=== PATIENT | female | born 1950 | race Asian ===

== ENCOUNTER → 2016-10-17 | Day surgery (SDC) | payer OTHER ==
[2016-09-28 16:08] LABS: BASO % 1.1 %; BASO ABS # 0.06 K/uL (0-0.2); COMPLETE YES; EOS % 2.7 %; HEMATOCRIT 38.7 % (37-47); IG% 0.4 %; LYMPH % 39.8 %; LYMPH ABS # 2.18 K/uL (1.2-3.4); MEAN CELL VOLUME 89.2 fL (80-100); MEAN CORPUSCULAR HGB CONC 33.6 g/dl (32-36); MEAN PLATELET VOLUME 9.2 fL (7.4-10.4); MONO % 8.6 %; NEUT % 47.4 %; PLATELET COUNT 246 K/uL (130-400); RED BLOOD COUNT 4.34 M/uL (4.2-5.4); WHITE BLOOD COUNT 5.48 K/uL (4.8-10.8)
[2016-10-04 10:52] VITALS: Ht 154.9 cm; Wt 59.1 kg
[2016-10-10 11:38] LABS: BUN/CREATININE RATIO 25.3 (10-20); CALCIUM 9.6 mg/dl (8.5-10.1); CREATININE 0.68 mg/dl (0.60-1.20); POTASSIUM 3.7 mmol/L (3.5-5.1)
[~2016-10-17] VITALS: Ht 154.9 cm; Wt 59.1 kg
[~2016-10-17] MED LIST: AMLO2.5T PO; ATROPINE SULFATE 0.1 MG/ML 5ML SYR IV PRN; DEXAMETHASONE SOD INJ 4 MG/ML VIAL ONE; EpHEDrine SULFATE INJ 50 MG/ML AMP IV PRN; FENTANYL CITRATE INJ 50 MCG/1 ML 2 ML VIAL IV PRN; FENTANYL CITRATE INJ 50 MCG/1 ML 2 ML VIAL ONE; HYDR25TA4 PO; IBUPROFEN 600 MG TAB PO PRN; KETOROLAC TROMETHAMINE 30 MG/ML VIAL IV. PRN; KETOROLAC TROMETHAMINE 30 MG/ML VIAL ONE; LACTATED RINGER'S 1000ML 1,000 ML IV SCH; LIDOCAINE HCL 2% 2 ML VIAL (20MG/ML) ONE; METOCLOPRAMIDE HCL INJ 5 MG/ML 2 ML VIAL IV PRN; MIDAZOLAM HCL 1 MG/ML 2ML VIAL ONE; ONDANSETRON INJ 2 MG/ML 2 ML VIAL IV PRN; ONDANSETRON INJ 2 MG/ML 2 ML VIAL ONE; OXYCODONE/ACETAMINOPHEN 5-325 TAB PO PRN; PROPOFOL IV EMULSION 10 MG/ML 20 ML VIAL IV ONE; SIMV10TA2 PO; SODIUM CHLORIDE 0.9% 1000ML 1,000 ML IV SCH
--- NOTE | 2016-10-17 06:52 | History & Physical Bridge - [place] ---
H&P Re-Evaluation Bridge Note: I have examined the patient, reviewed the History & Physical and in the interval since the performance of the History & Physical I have noted the following changes of clinical significance: No changes noted
--- NOTE | 2016-10-17 06:55 | Discharge Instructions-SurgCtr ---
Discharge Instructions Visit Reason for Visit: Endometrial Thickening Discharge Discharge Diagnosis / Problem: Endometrial Discharge Goals Goal(s): Specific goals Activity Recommendations Activity Limitations: per Instructions/Follow-up section Anesthesia . Post Anesthesia Instructions: If you have had General Anesthesia or IV Sedation: * Do not drive today. * Resume driving when surgeon permits. * Do not make important decisions or sign legal documents today. * Call surgeon for: 1. Temperature elevations greater than 101 degrees F. 2. Uncontrollable pain. 3. Excessive bleeding. 4. Persistent nausea and vomiting. 5. Medication intolerance (nausea, vomiting or rash). * For nausea and vomiting use only clear liquids such as: tea, soda, bouillon until nausea subsides, then gradually increase diet as tolerated. * If you have any concerns or questions, call your surgeon's office. If physician is unavailable and it is an emergency, call 911 or go to the nearest emergency room. . Instructions / Follow-Up Instructions / Follow-Up ACTIVITY RECOMMENDATIONS: * Avoid tampons, douching, hot tubs, pools, and intercourse until bleeding has stopped. * May shower as usual. * No strenuous activity for 24-48 hours. After 24-48 hours, you may do anything you feel like doing (driving and sports are okay). SPECIAL CARE INSTRUCTIONS: Special Diet: * Mild nausea may occur in the immediate post-operative period. * Take clear liquids such as tea, cola or bouillon until all nausea has subsided; you may then resume your normal diet. Special Care: * Light bleeding and vaginal spotting can last from a few days to 3-4 weeks. Call your doctor if bleeding becomes heavier than the heaviest part of your period. * Check your temperature twice a day for one week. If it goes above 100.4 degrees Fahrenheit (38.0 Celsius), notify your doctor. * Medication is motrin / ibuprofen, you may use 600mg every 6 hours as needed for discomfort. * Call your doctor's office for an appointment for 6 weeks after your surgery. FOLLOW-UP VISIT: Call your doctor's office for an appointment for 6 weeks after your surgery. Diet Recommendations Home Diet: resume previous diet Pending Studies Studies pending at discharge: no Medical Emergencies . Who to Call and When: Medical Emergencies: If at any time you feel your situation is an emergency, please call 911 immediately. . Non-Emergent Contact Non-Emergency issues call your: Primary Care Provider . . "Provider Documentation" section prepared by Marisel Evans.
--- NOTE | 2016-10-17 07:31 | [facility] Post Operative Brief Note ---
Immediate Operative Summary Operative Date Oct 17, 2016. Pre-Operative Diagnosis Endometrial Thickening Post-Operative Diagnosis Same Procedure(s) Performed Dilatation And Curettage, Hysteroscopy, Possible Polypectomy Surgeon Dr. Evans Equal Opportunity Assistant Surgeon(s) None Estimated Blood Loss 10 Findings large singular mass filling endometrial cavity, with apparent calcifications and visible blood vessels within a translucent stroma. Cavity otherwise smooth , ostia seen bilaterally. Sounded to 8cm. Specimens A. Endometrial Curettings Complication(s) None Disposition Recovery Room / PACU
--- NOTE | 2016-10-17 07:44 | OPERATIVE REPORT ---
DATE OF OPERATION: 10/17/2016 PREOPERATIVE DIAGNOSIS: Endometrial thickening. POSTOPERATIVE DIAGNOSIS: Same. PROCEDURE: D\T\C, hysteroscopy and polypectomy. SURGEON: Dr. Marisel Evans. C SOFTWARE DEVELOPER: None. ESTIMATED BLOOD LOSS: 10 mL. FINDINGS: A large singular mass filling the endometrial cavity with apparent calcifications and visible blood vessels within the translucent stroma. The cavity was otherwise smooth. Ostia were seen bilaterally. Sounded to 8 cm depth. SPECIMENS: Endometrial curettings and polyp. COMPLICATIONS: None. DISPOSITION: Stable to the recovery room. DESCRIPTION OF PROCEDURE: Amy is a 66-year-old female, postmenopausal with a thickened endometrium found incidentally on imaging. She was brought to the operating room, placed on the table in the dorsal lithotomy position, prepped and draped in standard sterile fashion and a hard time-out was taken prior to proceeding. The bladder was emptied of urine via straight catheterization. Bimanual examination was performed. Leigh and weighted specula were introduced to the vagina and the cervix was identified and grasped with a single-tooth tenaculum on its anterior lip. Uterus sounded to 8 cm and the cervix was then serially dilated to 19-[place]ian. The hysteroscope was introduced and a large singular mass was immediately evident filling the majority of the endometrial cavity. The scope was withdrawn. Polyp forceps were used to grasp and retrieve this mass in several pieces. Following the retrieval, the hysteroscope was reintroduced and the cavity was seen to be smooth and clear and ostia were visible bilaterally. The scope was again withdrawn and a brief sharp curettage was carried out and endometrial curettings were retrieved for pathology. The scope was then reintroduced one final time and the cavity was seen to have been smoothly curetted on all sides. All instruments were then withdrawn and the patient was transferred to recovery in stable condition. I attest to the content of the Intraoperative Record and any orders documented therein. Any exceptio ns are noted below.
[2016-10-17 08:07] VITALS: TEMP 36.6
--- NOTE | 2016-10-17 08:27 | Anesthesia Progress Nt - [facility] ---
Anesthesia Post Op Note Date & Time Oct 17, 2016 at 08:27 Vital Signs Pain Intensity: 0 Vital Signs Past 12 Hours Date Time Temp Pulse Resp B/P Pulse Ox O2 Delivery O2 Flow Rate FiO2 10/17/16 08:07 36.6 55 16 142/66 100 Room Air 10/17/16 08:03 143/75 10/17/16 08:02 36.4 60 22 135/64 98 Room Air 10/17/16 08:01 56 15 10/17/16 08:01 56 15 99 10/17/16 07:58 135/64 10/17/16 07:56 57 18 10/17/16 07:56 57 18 98 10/17/16 07:55 65 20 98 10/17/16 07:55 64 20 10/17/16 07:53 129/72 10/17/16 07:50 57 13 100 10/17/16 07:50 56 13 10/17/16 07:49 59 14 10/17/16 07:49 59 14 100 10/17/16 07:48 122/68 10/17/16 07:44 63 13 100 10/17/16 07:44 63 13 10/17/16 07:43 65 15 10/17/16 07:43 64 15 125/72 100 10/17/16 07:38 63 12 126/69 99 10/17/16 07:38 63 12 10/17/16 07:33 119/66 10/17/16 07:33 36.5 67 16 119/66 98 Mask 8 10/17/16 06:26 36.4 64 16 155/82 96 Room Air Notes Mental Status: alert / awake / arousable, participated in evaluation Pt Amnestic to Procedure: Yes Nausea / Vomiting: adequately controlled Pain: adequately controlled Airway Patency, RR, SpO2: stable & adequate BP & HR: stable & adequate Hydration State: stable & adequate Anesthetic Complications: no major complications apparent
[2016-10-17 08:40] VITALS: BP 128/71; PULSE 56; O2SAT 100
== END | disposition home or self-care (01) ==
LOC: X.SURG 06:07
PROVIDERS: ATTEND Obstetrics & Gynecology
DX: N85.8 Other specified noninflammatory disorders of uterus (principal); N84.0 Polyp of corpus uteri; R31.9 Hematuria, unspecified; Z86.39 Personal history of other endocrine, nutritional and metabolic disease; Z86.79 Personal history of other diseases of the circulatory system

== ENCOUNTER → 2017-05-12 | Outpatient (CLI) | payer OTHER ==
[~2017-05-12] MED LIST changes: -ATROPINE SULFATE 0.1 MG/ML 5ML SYR IV PRN; -DEXAMETHASONE SOD INJ 4 MG/ML VIAL ONE; -EpHEDrine SULFATE INJ 50 MG/ML AMP IV PRN; -FENTANYL CITRATE INJ 50 MCG/1 ML 2 ML VIAL IV PRN; -FENTANYL CITRATE INJ 50 MCG/1 ML 2 ML VIAL ONE; -IBUPROFEN 600 MG TAB PO PRN; -KETOROLAC TROMETHAMINE 30 MG/ML VIAL IV. PRN; -KETOROLAC TROMETHAMINE 30 MG/ML VIAL ONE; -LACTATED RINGER'S 1000ML 1,000 ML IV SCH; -LIDOCAINE HCL 2% 2 ML VIAL (20MG/ML) ONE; -METOCLOPRAMIDE HCL INJ 5 MG/ML 2 ML VIAL IV PRN; -MIDAZOLAM HCL 1 MG/ML 2ML VIAL ONE; -ONDANSETRON INJ 2 MG/ML 2 ML VIAL IV PRN; -ONDANSETRON INJ 2 MG/ML 2 ML VIAL ONE; -OXYCODONE/ACETAMINOPHEN 5-325 TAB PO PRN; -PROPOFOL IV EMULSION 10 MG/ML 20 ML VIAL IV ONE; -SODIUM CHLORIDE 0.9% 1000ML 1,000 ML IV SCH
--- NOTE | 2017-05-15 15:33 | MAMMOGRAPHY REPORT ---
BILATERAL DIGITAL SCREENING MAMMOGRAM WITH CAD: 05/12/2017 CLINICAL HISTORY: Routine screening. TECHNIQUE: Bilateral CC, MLO and repeat right cc views were obtained. Current study was also evaluat ed with a Computer Aided Detection (CAD) system. COMPARISON: No prior exams were available for comparison. BREAST COMPOSITION: There are scattered areas of fibroglandular density in both breasts. FINDINGS: There are a few benign-appearing coarse and punctate microcalcifications in the left breast . No suspicious mass, architectural distortion or cluster of suspicious microcalcifications is seen. IMPRESSION: ACR BI-RADS CATEGORY 1: NEGATIVE There is no mammographic evidence of malignancy. Prior outside mammograms are currently being reques bryon and if obtained they will be reviewed, compared to the current exam to assess for any more subtle changes, and an addendum will be made to this report. Otherwise, a 1 year screening mammogram is re commended. The patient will receive written notification of the results. Approximately 10% of breast cancers are not detected with mammography. A negative mammographic report should not delay biopsy if a clinically suggestive mass is present. Victoria Birch M.D. ay/:05/15/2017 14:46:57 Radiographer: Delores ONEIL(R)(M), [facility] letter sent: Normal 1/2 BI-RADS Code: ACR BI-RADS Category 1: Negative
== END | disposition home or self-care (01) ==
LOC: C.MAMM 10:10
PROVIDERS: ATTEND Obstetrics & Gynecology
DX: Z12.31 Encounter for screening mammogram for malignant neoplasm of breast (principal)

== ENCOUNTER → 2017-09-21 | Outpatient (CLI) | payer OTHER ==
--- NOTE | 2017-09-21 14:11 | DIAGNOSTIC IMAGING REPORT ---
LUMBAR SPINE MIN 4 VIEWS HISTORY: Pain RIGHT LUMBAR PAIN COMPARISON: None. FINDINGS: There is no fracture. Mild scoliosis. No evidence for compression deformity. Moderate degenerative disc change. IMPRESSION: Scoliosis. Moderate degenerative disc change. No acute process. The above report was generated using voice recognition software. It may contain grammatical, syntax or spelling errors. Electronically signed by: Marin Hopper M.D. 09/21/2017 2:10 PM Dictated Date/Time: 09/21/2017 2:07 PM
== END | disposition home or self-care (01) ==
LOC: C.RDSM 13:41
PROVIDERS: ATTEND Internal Medicine
DX: M41.26 Other idiopathic scoliosis, lumbar region (principal); M51.36 Other intervertebral disc degeneration, lumbar region

== ENCOUNTER → 2017-09-26 | Outpatient (CLI) | payer OTHER | END | disposition home or self-care (01) | LOC: C.MAMM 08:20 | PROVIDERS: ATTEND Family Medicine | DX: M85.88 Other specified disorders of bone density and structure, other site (principal); M85.852 Other specified disorders of bone density and structure, left thigh; M85.851 Other specified disorders of bone density and structure, right thigh ==

== ENCOUNTER → 2017-10-04 | Outpatient (CLI) | payer OTHER ==
--- NOTE | 2017-10-04 10:06 | DIAGNOSTIC IMAGING REPORT ---
THYROID ULTRASONOGRAPHY CLINICAL HISTORY: HYPERPARATHYROIDISM COMPARISON STUDY: No previous studies for comparison. FINDINGS: The right lobe of thyroid measures 4. 901.4 x 1.6 cm. The left lobe measured 4.5 x 1.0 x 1.5 cm. Both lobes of thyroid were heterogeneous in echotexture. There are multiple bilateral subcentimeter thyroid nodules. On the right there is a mid pole spongiform nodule measuring 7 x 4 x 5 mm. There is also a lower pole partially cystic nodule measuring 5 x 3 x 4 mm. On the left there is a hypoechoic slightly spongiform mid to upper pole 6 x 5 x 6 mm nodule. There is a spongiform 7 x 5 x 4 mm isthmus nodule. No parathyroid masses are visualized ultrasonographically. IMPRESSION: 1. Multinodular thyroid gland 2. No parathyroid masses were visualized ultrasonographically. Electronically signed by: Umer Briseno M.D. 10/04/2017 10:05 AM Dictated Date/Time: 10/04/2017 10:02 AM
== END | disposition home or self-care (01) ==
LOC: C.ULTR 09:27
PROVIDERS: ATTEND Family Medicine
DX: E21.3 Hyperparathyroidism, unspecified (principal); E04.2 Nontoxic multinodular goiter

== ENCOUNTER → 2018-05-10 | Outpatient (CLI) | payer OTHER ==
--- NOTE | 2018-05-10 10:36 | DIAGNOSTIC IMAGING REPORT ---
R HAND MIN 3 VIEWS ROUTINE, L HAND MIN 3 VIEWS ROUTINE HISTORY: 67 years-old Female M25.511,M25.512, M67.911, M79.641,M79.642, M81.0 chronic bilateral hand pain with history of osteoporosis COMPARISON: None available TECHNIQUE: 3 views of the bilateral hands FINDINGS: RIGHT: Bones are mildly demineralized. Moderate first carpometacarpal and first interphalangeal with mild multidigit interphalangeal osteoarthritis. No acute fracture, dislocation or erosive changes. Soft tissues are unremarkable. LEFT: Mild radiocarpal and multidigit interphalangeal with moderate first carpometacarpal osteoarthritis. No acute fracture, dislocation or erosive changes. Bones are mildly demineralized. Soft tissues are unremarkable without opaque foreign body. IMPRESSION: 1. Mild bone demineralization without acute fracture or dislocation. 2. Degenerative changes as above with moderate osteoarthritis of the bilateral first carpometacarpal joints.. The above report was generated using voice recognition software. It may contain grammatical, syntax or spelling errors. Electronically signed by: Junaid Brown M.D. 05/10/2018 10:34 AM Dictated Date/Time: 05/10/2018 10:30 AM
--- NOTE | 2018-05-10 10:53 | DIAGNOSTIC IMAGING REPORT ---
R SHOULDER MIN 2 VIEWS ROUTINE CLINICAL HISTORY: Bilateral shoulder pain. COMPARISON: None FINDINGS: Alignment of the right shoulder is anatomic. There is no fracture or suspicious lesion. There is mild osteoarthritis of the right acromioclavicular joint. No erosions are identified. Slight irregularity of the greater tuberosity is insertional. IMPRESSION: 1. No acute fracture. 2. Mild osteoarthritis of the right acromioclavicular joint. Electronically signed by: Ministerio Tong M.D. 05/10/2018 10:52 AM Dictated Date/Time: 05/10/2018 10:51 AM
== END | disposition home or self-care (01) ==
LOC: C.RAD1850 09:49
PROVIDERS: ATTEND Internal Medicine Rheumatology
DX: M25.511 Pain in right shoulder (principal); M25.512 Pain in left shoulder; M67.911 Unspecified disorder of synovium and tendon, right shoulder; M79.641 Pain in right hand; M79.642 Pain in left hand; M81.0 Age-related osteoporosis without current pathological fracture; M18.0 Bilateral primary osteoarthritis of first carpometacarpal joints

== ENCOUNTER → 2018-05-14 | Outpatient (CLI) | payer OTHER ==
--- NOTE | 2018-05-14 13:55 | MAMMOGRAPHY REPORT ---
BILATERAL DIGITAL SCREENING MAMMOGRAM TOMOSYNTHESIS WITH CAD: 05/14/2018 CLINICAL HISTORY: Routine screening. Patient has no complaints. TECHNIQUE: Breast tomosynthesis in addition to standard 2D mammography was performed. Current study w as also evaluated with a Computer Aided Detection (CAD) system. COMPARISON: Comparison is made to exam dated: 05/12/2017 mammogram - [facility]. BREAST COMPOSITION: There are scattered areas of fibroglandular density in both breasts. FINDINGS: No suspicious masses, calcifications, or areas of architectural distortion are noted in either breast . There has been no significant interval change compared to prior exams. Benign-appearing left breas t calcifications are not significantly changed. IMPRESSION: ACR BI-RADS CATEGORY 2: BENIGN There is no mammographic evidence of malignancy. A 1 year screening mammogram is recommended.( [id number]) The patient will receive written notification of the results. Some breast cancers are not detected with mammography. A negative mammographic report should not marlen y biopsy if a clinically suggestive mass is present. Irina Looney M.D. ah/:05/14/2018 12:23:06 It Security Consultant: RT Ruben(Tsering)(M), [facility] letter sent: Normal 1/2 BI-RADS Code: ACR BI-RADS Category 2: Benign
== END | disposition home or self-care (01) ==
LOC: C.MAMM 11:56
PROVIDERS: ATTEND Obstetrics & Gynecology
DX: Z12.31 Encounter for screening mammogram for malignant neoplasm of breast (principal)

== ENCOUNTER 2023-11-24 06:25 | Inpatient (IN) ==
[2023-11-24] MEDS: SODIUM CHLORIDE 0.9% 1,000 ML IV ONE ×2 (06:54→07:54)
--- NOTE | 2023-11-24 06:57 | Emergency Department Note ---
Impression & Plan Sepsis, Acute non-ST elevation myocardial infarction (NSTEMI), Acute UTI, Hyponatremia ED Provider Note NAME: LORRAINE MEREDITH AGE: 73 SEX: F : 1950 ARRIVES VIA: Walk-In INFORMANT: Patient, ED PROVIDER(S): ED TEMP CHIEF COMPLAINT: Nausea vomiting diarrhea MEDICAL DECISION MAKING: Patient presents due to concern for nausea vomiting and diarrhea that was thought secondary to food intake. IV was established and blood work was obtained. Patient was ordered IV fluids and Zofran. The patient does feel improved. Blood work shows a white count of 18 with a normal H&H. Platelet count is unremarkable. Lactate initially 2.9. Patient was ordered additional IV fluids. Patient noted to be hyponatremic. Patient was ordered urine and serum osmolality and urine electrolyte Patient did have CT of the abdomen pelvis performed. The patient was noted to have a significant elevation in troponin at 6900. EKG was repeated does show T wave inversions. I did perform bedside [id number] ultrasound did not show any significant pericardial effusion. Squeeze appeared to be concentric but unsure whether not depressed. Stat echo was ordered. I did speak with on-call assayer Dr. Valles. He agrees with stat echocardiogram heparin bolus and drip. Patient CT did show concern for ascending UTI. Patient was started on antibiotics. The patient has had pansensitive E. coli in the past. I did speak with the inpatient medicine service Dr. Yvonne garza and patient was admitted by Dr. Maher. Dr. Valles did state that the preliminary read of the echocardiogram did show concern for apical infarct Takotsubo and depressed EF. Critical Care: I have personally spent 75 minutes of critical care time in direct management of this patient. This includes bedside care, interpretation of diagnostic studies, and testing, discussion with consultants, patient, and family members, and other require inpatient management activities. This 75 minutes is in excess of all separately billable procedures. Discussion w/ other healthcare providers: Dr. Valles cardiology Dr. Maya and Dr. Maher inpatient medicine service Prior /Outside records reviewed: Patient did have pansensitive E. coli from June 05, 2023 Differential diagnosis: Gastroenteritis, food borne illness, infection, appendicitis, diverticulitis, inflammatory bowel disease, obstruction among others were considered. Diagnostics, as interpreted by me: ECG: Normal sinus rhythm, rate of 98, normal MN and QRS, right axis deviation, T wave inversions anteriorly and laterally. T wave versions are new for comparison EKG from October 21, 2020 Cardiac monitoring: An order was placed for continuous cardiac monitoring. The monitor shows a rate of 95 with sinus rhythm. Patient was placed on pulse oximetry Medical decision rules: None Imaging studies: I informally interpreted the patient's chest x-ray does not show obvious pneumonia or pneumothorax with formal report to follow. HPI: Patient presents due to concern for nausea vomiting and diarrhea since Monday. The patient is concerned that she might have food poisoning or Salmonella as the patient had had some chicken while eating out there but he also had burgers and nobody else had any symptoms. The patient denies any chest pains or shortness of breath. The patient denies any known sick contacts or recent travel no untreated stream or well water or recent antibiotic use. Patient did try to take some Tylenol for symptoms of abdominal cramping which improved her symptoms. Patient has complained of some chills and feeling cold but no fever. Patient denies any blood in the urine or stool and no blood in the vomit. The patient states that she typically has about 2 episodes per day. The patient states that her diarrhea is watery in nature. Patient denies alcohol tobacco or drug use PAST MEDICAL HISTORY: See Below PAST SURGICAL HISTORY: See Below SOCIAL HISTORY: See Below HOME MEDICATIONS: See Below ALLERGIES: See Below VITALS: See Below PHYSICAL EXAMINATION: GENERAL: NAD, non-toxic. EYE EXAM: Normal conjunctiva. PERRL, no anisocoria and EOM's grossly intact w/o pain. OROPHARYNX: Dry mucus membranes, grossly normal dentition. NECK: Trachea midline, no stridor. LUNGS: Clear to auscultation. Normal chest wall mechanics. HEART: NSR, no MRG. ABDOMEN: Abdomen soft, non-tender, no masses, no rebound or guarding. BACK: No CVA TTP. SKIN: No rashes and no bruising. UPPER EXTREMITIES: Upper extremities are grossly normal. LOWER EXTREMITIES: Grossly normal, no edema. NEURO EXAM: A&O x3, cranial nerves II-XII grossly intact, normal speech, moves all 4 extremities. Past Med/Surg History Medical History Age related osteoporosis Hyperlipidemia HTN (hypertension) Surgical History Hx of cataract extraction rt. History of endoscopy History of colonoscopy History of hysteroscopy endometrial polyp 2017 History of cholecystectomy History of thymoma benign Family History Sister Family history of diabetes mellitus Denies family history of Ovarian cancer Breast cancer Colorectal cancer Social History Smoking Status: Never smoker Second Hand Exposure: No; Do You Dip or Chew Tobacco: No; Hx Alcohol Use: No Hx Substance Use: No Preferred Language: Turkish Communication Ability: Effective School Social Worker Required: No Beliefs That Will Affect Care: None marital status: Current Living Situation: Spouse Current Living Situation Comment: moved from [place] to [place] to be closer to grandchildren current occupational status: retired 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 How many Children do You have: 2 Other Information That Helps Us Care for You: No Feels Safe at Home: Yes Safety Concerns: Feels Safe At This Time Assistive Devices: Denture - Upper and Denture - Lower Allergies Allergies Allergy/AdvReac Type Severity Reaction Status Date / Time lisinopril AdvReac Severe cough Verified 07/04/23 13:30 amlodipine AdvReac Unknown ankle Verified 07/04/23 13:30 swelling metoprolol AdvReac Unknown bradycardia, Verified 07/04/23 13:30 chest pain [id number] Reductase AdvReac Unknown muscle & Verified 07/04/23 13:30 Inhibitor joint pain [Kzsvocv-Xbh-Jpe Reductase Inhibitor] Home Meds Home Medications Medication Instructions Recorded Confirmed fenofibrate nanocrystallized 48 mg 48 mg PO QAM 08/21/20 11/24/23 tablet omega 4-ufx-ehw-fish oil 1,200 mg 0 cap PO QAM 10/28/20 11/24/23 (144 mg-216 mg) capsule (Fish Oil) spironolactone 50 mg tablet 50 mg PO BID 10/28/20 11/24/23 cholecalciferol (vitamin D3) 25 0 mcg PO QPM 05/05/23 11/24/23 mcg (1,000 unit) capsule hydrochlorothiazide 12.5 mg tablet 12.5 mg PO QAM 05/05/23 11/24/23 betamethasone, augmented 0.05 % 1 applic topical BID 11/24/23 11/24/23 topical cream meclizine 12.5 mg tablet 0 mg PO TID PRN dizziness 11/24/23 11/24/23 Previous Rx's Medication Instructions Recorded diltiazem HCl 120 mg 120 mg PO QAM #30 caps 10/28/20 capsule,extended release 24 hr (Cardizem CD) denosumab 60 mg/mL subcutaneous 60 mg subcut .[id number] #1 mL 03/24/23 syringe (Prolia) Results & Data (ED) Vital Signs Vital Signs - 24 hr 11/24/23 06:30 11/24/23 06:52 11/24/23 07:01 Temperature 36.2 C L Temperature Source Temporal Artery Scan Pulse Rate 103 H 96 H Pulse Rate [Apical] Respiratory Rate 16 Respiratory Effort / Characteristics Non-Labored Spontaneous Respiratory Depth Normal Blood Pressure 81/53 L Blood Pressure [Right Arm] Blood Pressure Mean 62 Blood Pressure Mean [Right Arm] Pulse Oximetry 98 96 Oxygen Delivery Method Room Air Room Air Sepsis Recent Fever Within 48 Hours No Sepsis New/Unexplained Change in Mental Status No Sepsis Action Taken by Nursing No Action Required 11/24/23 09:18 11/24/23 09:38 Temperature Temperature Source Pulse Rate Pulse Rate [Apical] 96 H 88 Respiratory Rate 24 22 Respiratory Effort / Characteristics Respiratory Depth Blood Pressure Blood Pressure [Right Arm] 94/49 L 97/58 L Blood Pressure Mean Blood Pressure Mean [Right Arm] 64 71 Pulse Oximetry 95 97 Oxygen Delivery Method Room Air Room Air Sepsis Recent Fever Within 48 Hours Sepsis New/Unexplained Change in Mental Status Sepsis Action Taken by Correction Medications Current Medication List: was personally reviewed by me Laboratory Data Attestation: I reviewed the patient's lab results. 11/24/23 06:51 11/24/23 06:51 Lab Results 11/24/23 11/24/23 11/24/23 Range/Units 06:51 06:56 07:49 WBC 18.27 H (4.8-10.8) K/ul RBC 4.39 (4.20-5.40) M/uL Hgb 13.1 (12.0-16.0) g/dl Hct 38.1 (37.0-47.0) % MCV 86.8 (80.0-100.0) fL MCH 29.8 (25.0-34.0) pg MCHC 34.4 (32.0-36.0) g/dL RDW Std Deviation 36.5 (36.4-46.3) fL RDW Coeff of Gibran 11.3 L (11.5-14.5) % Plt Count 298 (130-400) K/uL MPV 9.4 (9.4-12.4) fL Immature Gran % (Auto) 1.2 % Neut % (Auto) 87.1 % Lymph % (Auto) 5.3 % Esmeralda % (Auto) 6.1 % Eos % (Auto) 0.1 % Baso % (Auto) 0.2 % Neut # (Auto) 15.92 H (1.40-6.50) K/uL Lymph # (Auto) 0.97 L (1.20-3.40) K/uL Esmeralda # (Auto) 1.11 H (0.11-0.59) K/uL Eos # (Auto) 0.01 (0.00-0.50) K/uL Baso # (Auto) 0.04 (0.00-0.20) K/uL Immature Gran # (Auto) 0.22 H (0.01-0.20) K/uL Sodium 127 L (136-145) mmol/L Potassium 4.0 (3.5-5.1) mmol/L Chloride 93 L (98-107) mmol/L Carbon Dioxide 22 (21-32) mmol/L Anion Gap 12 H (3-11) BUN 34 H (6-23) mg/dl Creatinine 1.73 H (0.6-1.2) mg/dl Est Cr Clr Drug Dosing Not Reportable Est GFR ( Amer) 32.9 ml/min Est GFR (Non-Af Amer) 28.4 ml/min BUN/Creatinine Ratio 19.7 (10-20) Glucose 160 H (70-99(Fasting)) mg/dl Osmolality 283 (280-300) mOsm/kg Lactate 2.9 H* (0.4-2.0) mmol/L Calcium 9.5 (8.6-10.3) mg/dl Magnesium 1.8 (1.7-2.4) mg/dl Total Bilirubin 1.1 H (0.2-1.0) mg/dl AST 97 H (13-39) U/L ALT 85 H (7-52) U/L Alkaline Phosphatase 64 (34-104) U/L Troponin I High Sens 6996.8 H* 7768.4 H* (0-14) pg/ml B-Natriuretic Peptide 1866 H (0-100) pg/ml Total Protein 7.8 (6.0-8.3) gm/dl Albumin 4.3 (3.4-5.0) gm/dl Globulin 3.5 (2.5-4.0) gm/dl Albumin/Globulin Ratio 1.2 (0.9-2) Lipase 23 (11-82) U/L Procalcitonin 23.60 H (0-0.5) ng/ml Urine Color Urine Appearance (Clear) Urine pH (4.5-7.5) Ur Specific Plessis (1.000-1.030) Urine Protein (Negative) Urine Glucose (UA) (Negative) Urine Ketones (Negative) Urine Blood (Negative) Urine Nitrite (Negative) Urine Bilirubin (Negative) Urine Urobilinogen (Negative) Ur Leukocyte Esterase (Negative) Urine WBC (Auto) (0-5) /hpf Urine RBC (Auto) (0-4) /hpf U Hyaline Cast (Auto) (0-5) /lpf U Epithel Cells (Auto) (0-5) /lpf Urine Bacteria (Auto) (Negative) Urine Osmolality (500-800) mOsm/kg Urine Sodium mmol/L Urine Potassium mmol/L Urine Chloride mmol/L SARS-CoV-2 (PCR) NEGATIVE (Negative) Influenza Type A (PCR) Negative (Neg) Influenza Type B (PCR) Negative (Neg) RSV (RT-PCR) Negative (Neg) 11/24/23 11/24/23 Range/Units 08:45 09:10 WBC (4.8-10.8) K/ul RBC (4.20-5.40) M/uL Hgb (12.0-16.0) g/dl Hct (37.0-47.0) % MCV (80.0-100.0) fL MCH (25.0-34.0) pg MCHC (32.0-36.0) g/dL RDW Std Deviation (36.4-46.3) fL RDW Coeff of Gibran (11.5-14.5) % Plt Count (130-400) K/uL MPV (9.4-12.4) fL Immature Gran % (Auto) % Neut % (Auto) % Lymph % (Auto) % Esmeralda % (Auto) % Eos % (Auto) % Baso % (Auto) % Neut # (Auto) (1.40-6.50) K/uL Lymph # (Auto) (1.20-3.40) K/uL Esmeralda # (Auto) (0.11-0.59) K/uL Eos # (Auto) (0.00-0.50) K/uL Baso # (Auto) (0.00-0.20) K/uL Immature Gran # (Auto) (0.01-0.20) K/uL Sodium (136-145) mmol/L Potassium (3.5-5.1) mmol/L Chloride (98-107) mmol/L Carbon Dioxide (21-32) mmol/L Anion Gap (3-11) BUN (6-23) mg/dl Creatinine (0.6-1.2) mg/dl Est Cr Clr Drug Dosing Est GFR ( Amer) ml/min Est GFR (Non-Af Amer) ml/min BUN/Creatinine Ratio (10-20) Glucose (70-99(Fasting)) mg/dl Osmolality (280-300) mOsm/kg Lactate 1.9 (0.4-2.0) mmol/L Calcium (8.6-10.3) mg/dl Magnesium (1.7-2.4) mg/dl Total Bilirubin (0.2-1.0) mg/dl AST (13-39) U/L ALT (7-52) U/L Alkaline Phosphatase (34-104) U/L Troponin I High Sens (0-14) pg/ml B-Natriuretic Peptide (0-100) pg/ml Total Protein (6.0-8.3) gm/dl Albumin (3.4-5.0) gm/dl Globulin (2.5-4.0) gm/dl Albumin/Globulin Ratio (0.9-2) Lipase (11-82) U/L Procalcitonin (0-0.5) ng/ml Urine Color Dark Yellow Urine Appearance Cloudy A (Clear) Urine pH 5.5 (4.5-7.5) Ur Specific Plessis 1.014 (1.000-1.030) Urine Protein 1+ H (Negative) Urine Glucose (UA) Negative (Negative) Urine Ketones Negative (Negative) Urine Blood 3+ H (Negative) Urine Nitrite Negative (Negative) Urine Bilirubin Negative (Negative) Urine Urobilinogen Negative (Negative) Ur Leukocyte Esterase 3+ H (Negative) Urine WBC (Auto) >30 H (0-5) /hpf Urine RBC (Auto) 5-10 H (0-4) /hpf U Hyaline Cast (Auto) 5-10 H (0-5) /lpf U Epithel Cells (Auto) >30 H (0-5) /lpf Urine Bacteria (Auto) Negative (Negative) Urine Osmolality 388 L (500-800) mOsm/kg Urine Sodium 12 mmol/L Urine Potassium 35.3 mmol/L Urine Chloride 15 mmol/L SARS-CoV-2 (PCR) (Negative) Influenza Type A (PCR) (Neg) Influenza Type B (PCR) (Neg) RSV (RT-PCR) (Neg) Administered Medications Heparin Sodium/Dextrose (Heparin Sodium/Dextrose) 25,000 units in 500 mls @ 13 mls/hr IV .Q24H [facility]; Protocol Stop: 12/24/23 09:29 Last Admin: 11/24/23 09:55 Dose: 650 units/hr, 13 mls/hr Documented By: BRIGID Co-signed By: NOEL Discontinued Medications Aspirin (Aspirin Chew 324 Mg) 324 mg PO NOW STA Stop: 11/24/23 09:58 Last Admin: 11/24/23 11:35 Dose: 324 mg Documented By: BRIGID Heparin Sodium (Porcine) (Heparin Sod (Porcine) 1000 Unit/Ml) 3,000 units IV NOW ONE Stop: 11/24/23 09:25 Last Admin: 11/24/23 09:57 Dose: 3,000 units Documented By: BRIGID Co-signed By: NOEL Sodium Chloride (Nss) 1,000 mls @ 999 mls/hr IV .Q1H1M ONE Stop: 11/24/23 07:32 Last Infusion: 11/24/23 07:54 Dose: Infused Documented By: Admin: 11/24/23 06:54 Dose: 999 mls/hr Documented By: SHOLA Pantoprazole Sodium 40 mg/ (Syringe) 10 mls @ 5 mls/min IV NOW ONE Stop: 11/24/23 06:33 Last Admin: 11/24/23 07:54 Dose: 5 mls/min Documented By: BRIGID Sodium Chloride (Nss) 1,000 mls @ 999 mls/hr IV .Q1H1M ONE Stop: 11/24/23 07:36 Last Infusion: 11/24/23 09:21 Dose: Infused Documented By: Admin: 11/24/23 07:54 Dose: 999 mls/hr Documented By: BRIGID Ceftriaxone Sodium (Rocephin) 2,000 mg in 50 mls @ 100 mls/hr IV NOW STA Stop: 11/24/23 09:21 Last Infusion: 11/24/23 09:54 Dose: Infused Documented By: Admin: 11/24/23 09:11 Dose: 100 mls/hr Documented By: BRIGID Sodium Chloride (Nss) 500 mls @ 999 mls/hr IV .Q31M ONE Stop: 11/24/23 10:18 Last Infusion: 11/24/23 12:45 Dose: Infused Documented By: Admin: 11/24/23 11:36 Dose: 999 mls/hr Documented By: BRIGID Sodium Chloride (Nss) 1,000 mls @ 100 mls/hr IV .Q10H SURJIT Stop: 11/25/23 08:14 Last Admin: 11/24/23 12:44 Dose: Not Given Documented By: CHELSEY Ondansetron HCl (Ondansetron Inj 2 Mg/Ml 2 Ml Vial) 4 mg IV NOW STA Stop: 11/24/23 06:33 Last Admin: 11/24/23 11:29 Dose: Not Given Documented By: BRIGID Imaging Data Radiologist's Impression: Abdomen/Pelvis CT 11/24/23 07:[address] WITHOUT CONTRAST CT DOSE: 572.25 mGy.cm HISTORY: Acute generalized abdominal pain with nausea, vomiting and diarrhea n/v/d TECHNIQUE: Multiaxial CT images of the abdomen and pelvis were performed without contrast. A dose lowering technique was utilized adhering to the principles of ALARA. COMPARISON STUDY: 08/16/2016 FINDINGS: Mild cardiomegaly. Clear lung bases. No free air. The unenhanced spleen, pancreas and adrenal glands are unremarkable. The gallbladder is either contracted or surgically absent. Hepatic steatosis. There is nonspecific bilateral perinephric inflammatory stranding. No renal or ureteral calculi or hydronephrosis. Probable cyst within the superior pole right kidney redemonstrated measuring up to 4.2 cm within the superior pole. There is an unchanged 3 mm calcification within the right hemipelvis on image 262 series 3 adjacent to the distal right ureter suggestive of a phlebolith. Urinary bladder wall thickening with partial distention. Pelvic floor relaxation with rectocele. Probable small nabothian cyst of the cervix. Unremarkable uterus and adnexa. Atherosclerosis of the aorta. No lymphadenopathy. Small hiatal hernia. Moderate-sized duodenal diverticulum. No bowel obstruction or bowel wall thickening. Noninflamed appendix. Benign-appearing 11 mm fatty attenuating focus within the mid pelvis on image 248. Upper abdominal fat filled hernia is noted with diastases of 4.5 cm, similar to prior. Lumbar levoscoliosis. No acute fracture. IMPRESSION: 1. Findings suggestive of cystitis with bilateral ascending infection. Correlate with urinalysis. 2. No renal or ureteral calculi or hydronephrosis. 3. No bowel obstruction or bowel wall thickening. Normal appendix. 4. Hepatic steatosis. 5. Small hiatal hernia. ACT 112: Negative or not required by law. The above report was generated using voice recognition software. It may contain grammatical, syntax or spelling errors. Electronically signed by: Adalberto Brown M.D. 11/24/2023 8:23 AM Chest X-Ray 11/24/23 08:26 SINGLE VIEW CHEST CLINICAL HISTORY: Vomiting. Chills. FINDINGS: An AP, portable, upright chest radiograph is compared to study dated 05/27/2022. The heart is mildly enlarged and noting atherosclerotic calcification of the thoracic aorta. The pulmonary vasculature is not congested. Chronic interstitial thickening is similar to previous. There is mild bibasilar scarring/atelectasis. The lungs and pleural spaces are otherwise clear. No pneumothorax is seen. The skeletal structures are osteopenic. The bony thorax is grossly intact. IMPRESSION: No active disease in the chest. ACT 112: Negative or not required by law. Electronically signed by: Josse Gutiérrez M.D. 11/24/2023 9:08 AM Discharge Plan Visit Data Chief Complaint: Vomiting Stated Complaint: VOMITING ED Provider: Toribio Lockhart Discharge Problem: Sepsis, Acute non-ST elevation myocardial infarction (NSTEMI), Acute UTI, Hyponatremia Patient Disposition: Admitted As Inpatient Discharge Instructions Interventions: ED Discharge Assessment Last Done: 11/24/23 11:50 Discharge Problem: Sepsis Qualifiers: Sepsis type: sepsis due to unspecified organism Sepsis acute organ dysfunction status: with acute organ dysfunction Severe sepsis acute organ dysfunction type: unspecified Severe sepsis shock status: unspecified Qualified Code(s): A41.9 - Sepsis, unspecified organism; R65.20 - Severe sepsis without septic shock
[2023-11-24 07:10] LABS: Basophils # (auto) 0.04 K/uL (0.00-0.20); Basophils % (auto) 0.2 %; Eosinophils # (auto) 0.01 K/uL (0.00-0.50); Eosinophils % (auto) 0.1 %; Hematocrit (blood only) 38.1 % (37.0-47.0); Hemoglobin 13.1 g/dl (12.0-16.0); Immature Granulocytes # (auto) 0.22 K/uL (0.01-0.20); Immature Granulocytes % (auto) 1.2 %; Lymphocytes # (auto) 0.97 K/uL (1.20-3.40); Lymphocytes % (auto) 5.3 %; Mean Corpuscular Hemoglobin 29.8 pg (25.0-34.0); Mean Corpuscular Hgb Conc 34.4 g/dL (32.0-36.0); Mean Corpuscular Volume 86.8 fL (80.0-100.0); Mean Platelet Volume 9.4 fL (9.4-12.4); Monocytes # (auto) 1.11 K/uL (0.11-0.59); Monocytes % (auto) 6.1 %; Neutrophils # (auto) 15.92 K/uL (1.40-6.50); Neutrophils % (auto) 87.1 %; Platelet Count 298 K/uL (130-400); RDW Coefficient of Variation 11.3 % (11.5-14.5); RDW Standard Deviation 36.5 fL (36.4-46.3); Red Blood Count 4.39 M/uL (4.20-5.40); White Blood Count 18.27 K/ul (4.8-10.8)
[2023-11-24 07:27] LABS: Alanine Aminotransferase 85 U/L (7-52); Albumin Globulin Ratio 1.2 (0.9-2); Albumin Level 4.3 gm/dl (3.4-5.0); Alkaline Phosphatase 64 U/L (34-104); Anion Gap 12 (3-11); Aspartate Aminotransferase 97 U/L (13-39); BUN Creatinine Ratio 19.7 (10-20); Bilirubin,Total 1.1 mg/dl (0.2-1.0); Blood Urea Nitrogen 34 mg/dl (6-23); Calcium 9.5 mg/dl (8.6-10.3); Carbon Dioxide 22 mmol/L (21-32); Chloride 93 mmol/L (98-107); Est GFR (African American) 32.9 ml/min; Est GFR (Non-African American) 28.4 ml/min; Globulin 3.5 gm/dl (2.5-4.0); Glucose 160 mg/dl (70-99(Fasting)); Lipase 23 U/L (11-82); Magnesium 1.8 mg/dl (1.7-2.4); Sodium 127 mmol/L (136-145); Total Protein 7.8 gm/dl (6.0-8.3)
[2023-11-24 07:37] LABS: Troponin I High Sensitivity 6996.8 pg/ml (0-14)
[2023-11-24 07:50] LABS: Influenza A virus by PCR Negative (Neg); Influenza B virus by PCR Negative (Neg); RSV by PCR Negative (Neg); SARS CoV2 RNA(COVID-19) Ceph NEGATIVE (Negative)
[2023-11-24] MEDS: PANTOprazole 40 MG in SYRINGE 0 ML IV ONE (07:54)
--- NOTE | 2023-11-24 08:24 | CT Scan Report ---
ABDOMEN AND PELVIS CT WITHOUT CONTRAST CT DOSE: 572.25 mGy.cm HISTORY: Acute generalized abdominal pain with nausea, vomiting and diarrhea n/v/d TECHNIQUE: Multiaxial CT images of the abdomen and pelvis were performed without contrast. A dose lo wering technique was utilized adhering to the principles of ALARA. COMPARISON STUDY: 08/16/2016 FINDINGS: Mild cardiomegaly. Clear lung bases. No free air. The unenhanced spleen, pancreas and adren al glands are unremarkable. The gallbladder is either contracted or surgically absent. Hepatic steato sis. There is nonspecific bilateral perinephric inflammatory stranding. No renal or ureteral calculi or hy dronephrosis. Probable cyst within the superior pole right kidney redemonstrated measuring up to 4.2 cm within the superior pole. There is an unchanged 3 mm calcification within the right hemipelvis on image 262 series 3 adjacent to the distal right ureter suggestive of a phlebolith. Urinary bladder wa ll thickening with partial distention. Pelvic floor relaxation with rectocele. Probable small nabothi an cyst of the cervix. Unremarkable uterus and adnexa. Atherosclerosis of the aorta. No lymphadenopat hy. Small hiatal hernia. Moderate-sized duodenal diverticulum. No bowel obstruction or bowel wall thicken ing. Noninflamed appendix. Benign-appearing 11 mm fatty attenuating focus within the mid pelvis on im age 248. Upper abdominal fat filled hernia is noted with diastases of 4.5 cm, similar to prior. Lumba r levoscoliosis. No acute fracture. IMPRESSION: 1. Findings suggestive of cystitis with bilateral ascending infection. Correlate with urinalysis. 2. No renal or ureteral calculi or hydronephrosis. 3. No bowel obstruction or bowel wall thickening. Normal appendix. 4. Hepatic steatosis. 5. Small hiatal hernia. ACT 112: Negative or not required by law. The above report was generated using voice recognition software. It may contain grammatical, syntax o r spelling errors. Electronically signed by: Adalberto Brown M.D. 11/24/2023 8:23 AM
[2023-11-24] MEDS ORDERED: Heparin IV Adult Wt-Based Low-Dose *NO* INITIAL Bolus Protocol IV STA (09:05)
[2023-11-24] MEDS ORDERED: Heparin IV Adult Wt-Based Low-Dose w/ INITIAL Bolus Protocol IV SCH (09:09)
--- NOTE | 2023-11-24 09:09 | XRay Report ---
SINGLE VIEW CHEST CLINICAL HISTORY: Vomiting. Chills. FINDINGS: An AP, portable, upright chest radiograph is compared to study dated 05/27/2022. The heart is mildly enlarged and noting atherosclerotic calcification of the thoracic aorta. The pulmonary vascul ature is not congested. Chronic interstitial thickening is similar to previous. There is mild bibasil ar scarring/atelectasis. The lungs and pleural spaces are otherwise clear. No pneumothorax is seen. T he skeletal structures are osteopenic. The bony thorax is grossly intact. IMPRESSION: No active disease in the chest. ACT 112: Negative or not required by law. Electronically signed by: Josse Gutiérrez M.D. 11/24/2023 9:08 AM
[2023-11-24] MEDS: cefTRIAXone SODIUM 2,000 MG/50 ML BAG IV STA (09:11)
[2023-11-24] MEDS ORDERED: HEPARIN SODIUM/DEXTROSE 25,000 UNITS/500 ML BAG IV SCH (09:30)
[2023-11-24 09:33] LABS: Appearance Urine Cloudy (Clear); Bacteria Urine Automated Negative (Negative); Bilirubin Urine Negative (Negative); Blood Urine 3+ (Negative); Color Urine Dark Yellow; Epithelial Cell Urine Auto >30 /lpf (0-5); Glucose Urine UA Negative (Negative); Ketones Urine Negative (Negative); Leukocyte Esterase Urine 3+ (Negative); Nitrite Urine Negative (Negative); Protein Urine 1+ (Negative); Specific Gravity Urine 1.014 (1.000-1.030); Urobilinogen Urine Negative (Negative); WBC Urine Automated >30 /hpf (0-5); pH Urine 5.5 (4.5-7.5)
[2023-11-24 09:48] LABS: Urine Potassium 35.3 mmol/L
[2023-11-24] MEDS: HEPARIN SODIUM/DEXTROSE 25,000 UNITS/500 ML BAG IV SCH (09:55)
[2023-11-24] MEDS: HEPARIN SOD (PORCINE) 1000 UNIT/ML IV ONE (09:57)
--- NOTE | 2023-11-24 10:13 | History & Physical Report ---
Date of Service November 24, 2023 Assessment & Plan (1) Sepsis: Plan: With cystitis on CT scan patient likely to have sepsis from a urinary source. Procalcitonin is 23.6 Liters volume resuscitation with crystalloid. Lactic acid was 2.9 with repeat 1.9 after resuscitation Remains hypotensive with a MAP below 65 additional 500 cc of crystalloid given and continuing at normal saline at 100 an hour. Patient blood cultures and urine cultures obtained. Pending stool studies. On ceftriaxone at this time. Patient think she may have eaten undercooked chicken at a local restaurant Patient mild elevation of AST and ALT concern for possible shock liver we will continue to follow with a complete metabolic panel in the morning (2) Chronic kidney disease, stage III (moderate): Plan: Acute kidney injury with elevation of creatinine she typically has chronic kidney disease stage [address] Anderson who also manages her hypertension. She has chronic hypertension with many medication intolerances. She typically takes Cardizem 120, spironolactone 50 twice daily and hydrochlorothiazide 25 a day these are all on hold due to hypotension Hyponatremia patient is normally close to 134 135. Unfortunately with large volume of crystalloid resuscitation her sodium may get further. She has no neurological symptoms. Serum and urine awesome's are pending with the random urine sodium. (3) Elevated troponin: Plan: Elevated troponin 6 8007,000 on recheck. EKG changes with lateral T wave inversions. Concern for ACS Patient given aspirin and started on heparin drip. Previous intolerance to metoprolol plus hypotension That echocardiogram is preliminarily read as possible Takotsubo's myocarditis. Cardiology consult is pending Plan Parenteral heparin as DVT prevention at this time History of Present Illness Primary Care Provider: Faustonick Melo 73-year-old female presents with nausea vomiting and diarrhea. She feels it was secondary to chicken that was poorly cooked at a local restaurant. However upon evaluation it looks to be that she has sepsis from urinary source with cystitis seen on CT scan. She is a previous history of pansensitive E. coli. Additionally she has low blood pressure despite volume resuscitation, elevated lactic acid, elevated troponin to 7000 with what looks like Takotsubo's cardiomyopathy on echocardiogram. She also has sodium of 127 acute kidney injury with history of chronic kidney disease with a BUN and creatinine of 34 and 1.7. She has a BNP of 1866 and a Pro-Keagan of 23. In the emergency department she was initially placed on heparin drip for fear of NSTEMI, she was given ceftriaxone after blood cultures were obtained. A urine culture is currently pending. Stool bio fire and C. difficile are currently pending. Patient received additional 500 cc of saline in the emergency department should be placed on saline drip reluctantly given her hyponatremia. Serum and urine osmolalities as well as urine sodium are pending. Call to nephrology who she typically follows for chronic kidney disease and cardiology is consulted given her troponin is 7000 Propacet preliminary looking like Takotsubo's. She remains on heparin drip was given aspirin She is currently awake and conversant she feels chilled and having some shivers but not rigors. Allergies Allergy/AdvReac Type Severity Reaction Status Date / Time lisinopril AdvReac Severe cough Verified 07/04/23 13:30 amlodipine AdvReac Unknown ankle Verified 07/04/23 13:30 swelling metoprolol AdvReac Unknown bradycardia, Verified 07/04/23 13:30 chest pain Pjgtsmk-RDA-HfS Reductase AdvReac Unknown muscle & Verified 07/04/23 13:30 Inhibitor joint pain [Csnktss-Pex-Mfn Reductase Inhibitor] Home Medications Medication Instructions Recorded Confirmed Type fenofibrate nanocrystallized 48 mg 48 mg PO QAM 08/21/20 11/24/23 History tablet diltiazem HCl 120 mg 120 mg PO QAM #30 caps 10/28/20 11/24/23 Rx capsule,extended release 24 hr (Cardizem CD) omega 4-rql-nzf-fish oil 1,200 mg 0 cap PO QAM 10/28/20 11/24/23 History (144 mg-216 mg) capsule (Fish Oil) spironolactone 50 mg tablet 50 mg PO BID 10/28/20 11/24/23 History denosumab 60 mg/mL subcutaneous 60 mg subcut .[id number] #1 mL 03/24/23 11/24/23 Rx syringe (Prolia) cholecalciferol (vitamin D3) 25 0 mcg PO QPM 05/05/23 11/24/23 History mcg (1,000 unit) capsule hydrochlorothiazide 12.5 mg tablet 12.5 mg PO QAM 05/05/23 11/24/23 History betamethasone, augmented 0.05 % 1 applic topical BID 11/24/23 11/24/23 History topical cream meclizine 12.5 mg tablet 0 mg PO TID PRN dizziness 11/24/23 11/24/23 History Past Med/Surg History Medical History Age related osteoporosis Hyperlipidemia HTN (hypertension) Surgical History Hx of cataract extraction rt. History of endoscopy History of colonoscopy History of hysteroscopy endometrial polyp 2017 History of cholecystectomy History of thymoma benign Family History Sister Family history of diabetes mellitus Denies family history of Ovarian cancer Breast cancer Colorectal cancer Social History Smoking Status: Never smoker Second Hand Exposure: No; Do You Dip or Chew Tobacco: No; Hx Alcohol Use: No Hx Substance Use: No Preferred Language: Wolof Communication Ability: Effective Loan Documentation Specialist Required: No Beliefs That Will Affect Care: None marital status: Current Living Situation: Spouse Current Living Situation Comment: moved from [place] to [place] to be closer to grandchildren current occupational status: retired 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 She is conversant having shaking chills Vital signs as documented. Head exam is normocephalic atraumatic Neck is without JVD, thyromegaly, or carotid bruits. Lungs are clear to auscultation, no focal loss of breath sounds Cardiac exam, Rhythm is regular.. No murmurs, rubs or gallops. Abdominal exam reveals normal bowel sounds, soft non tender, no masses be some mild left CVA tenderness. Extremities are nonedematous and both pedal pulses are present Neurologic exam is alert and oriented, no focal loss of strength or sensation Skin is without bruises or rashes Psychologically is without concerns for anxiety or depression.. Results & Data Results & Data Vital Signs (Past 12 Hours) Vital Signs Temp Pulse Pulse Resp BP BP Pulse Ox 11/24/23 09:38 88 22 97/58 L 97 11/24/23 09:18 96 H 24 94/49 L 95 11/24/23 07:01 96 H 11/24/23 06:52 96 11/24/23 06:30 97.2 F L 103 H 16 81/53 L 98 O2 Del Method 11/24/23 09:38 Room Air 11/24/23 09:18 Room Air 11/24/23 07:01 11/24/23 06:52 Room Air 11/24/23 06:30 Room Air Laboratory Results Reviewed CBC reviewed chemistry reviewed CT scan results. Code Status & VTE Plan VTE Prophylaxis Plan VTE Prophylaxis will be ordered: Yes PG Care Time/CCT Total # of Minutes Spent Total Time Spent with Patient: Total time spent is greater than 50% in coordination of care (as documented) at patient's floor/unit and/or counseling patient: Coding Level of Care Code 72119 INT INP/OBS CARE 3/75MIN Diagnoses Sepsis A41.9 Chronic kidney disease, stage III (moderate) N18.30 Elevated troponin R79.89
--- NOTE | 2023-11-24 10:26 | XCELERA ---
[id number]\[id number]
--- NOTE | 2023-11-24 11:11 | Electrocardiogram Report ---
Test Reason : Blood Pressure : / mmHG Vent. Rate : 098 BPM Atrial Rate : 098 BPM P-R Int : 180 ms QRS Dur : 082 ms QT Int : 388 ms P-R-T Axes : -29 083 -51 degrees QTc Int : 495 ms Normal sinus rhythm T wave abnormality, consider anterolateral ischemia Prolonged QT Abnormal ECG When compared with ECG of 21-OCT-2020 10:35, T-wave inversion in Anterior leads now present Confirmed by Ronaldo Valles ([id number]) on 11/24/2023 11:11:34 AM Referred By: REFERRED SELF Confirmed By:Ronaldo Valles
--- NOTE | 2023-11-24 11:12 | Electrocardiogram Report ---
Test Reason : Blood Pressure : / mmHG Vent. Rate : 086 BPM Atrial Rate : 086 BPM P-R Int : 176 ms QRS Dur : 088 ms QT Int : 422 ms P-R-T Axes : -10 077 -71 degrees QTc Int : 504 ms Sinus rhythm with Premature atrial complexes T wave abnormality, consider inferior ischemia T wave abnormality, consider anterolateral ischemia Prolonged QT Abnormal ECG When compared with ECG of 24-NOV-2023 06:45, Premature atrial complexes are now Present Confirmed by Ronaldo Valles ([id number]) on 11/24/2023 11:12:24 AM Referred By: REFERRED SELF Confirmed By:Ronaldo Valles
[2023-11-24] MEDS: ONDANSETRON INJ 2 MG/ML 2 ML VIAL IV STA (11:29)
[2023-11-24] MEDS: ASPIRIN CHEW 324 MG PO STA (11:35)
[2023-11-24] MEDS: SODIUM CHLORIDE 0.9% 500 ML IV ONE (11:36)
[2023-11-24] MEDS ORDERED: NITROGLYCERIN SL 0.4 MG/TAB TAB SL PRN (12:15)
[2023-11-24] MEDS ORDERED: ONDANSETRON INJ 2 MG/ML 2 ML VIAL IV PRN (12:15)
[2023-11-24] MEDS: SODIUM CHLORIDE 0.9% 1,000 ML IV SCH (12:44)
--- OUTSIDE RECORDS SUMMARY | 2023-11-24 15:16 | External Medical Summary | Continuity of Care Document ---
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 Name Role Phone Gilbert Alejo Primary Care Physician [phone] [id number] Date(s): 11/21/23 - 11/21/23 [facility] [address] Medical [facility] [address] [place] [id number] [place] [phone] Encounter Diagnosis Body mass index [BMI] 22.0-22.9, adult(Discharge Diagnosis) - 11/21/23 Rash of back(Discharge Diagnosis) - 11/21/23 Discharge Disposition: Home or Self Care Attending Physician: MD Amadeo La Salle Allergies, Adverse Reactions, Alerts Substance Reaction Severity Status metoprolol chest pain Active lisinopril cough Active simvastatin myalgia Active losartan leg pain Active alendronate jaw pain Active atorvastatin myalgia Active rosuvastatin myalgia Active amLODIPine edema Active Assessment and Plan Extracted from: Title:Office Visit Note Author:FINESSE Childs, Kerline Junior Date:11/21/23 1.Rash of back STATUS:Acute, uncomplicated. -Complaining of rash only affecting back -Unsure of when it really started but worse [facility] [place] -Does not know of any specific medication, food or environmental trigger. -, who was with her on the trip, has no rash or itching -Was at the beach but laying on the sand which is the only thing she can recall being different -Only itches without any burning or pain, fever, chills or GI sx DATA:Labs reviewed. GOAL:Maintain stability. PLAN:Cont current monitoring. Unsure of etiology given itching as her only symptom Diprolene AF cream 2-3x daily for the next 1-2 weeks Add Zyrtec 10mg daily If rash is not improved will get labs including CBC and send to dermatology for biopsy Time spent on pre-visit plannin min Face to face time spent w/ patient:14 min Time spent documenting pertinent clinical information into the EMR:5 min Total time: 22 min Immunizations Given and Recorded Vaccine Date Status Refusal Reason influenza virus vaccine, inactivated 06/30/23 Zuhair rded influenza virus vaccine, inactivated 06/30/21 Give n influenza virus vaccine, inactivated 07/11/19 Zuhair rded influenza virus vaccine, inactivated 06/01/18 Give n influenza virus vaccine, inactivated 07/25/17 Give n influenza virus vaccine, inactivated 07/14/16 Give n zoster vaccine, inactivated 1 12/12/18 Recorded zoster vaccine, inactivated 10/12/18 Recorded pneumococcal 13-valent vaccine 06/04/18 Recorded pneumococcal 13-valent vaccine 06/04/18 Recorded tetanus/diphtheria/pertuss, acel (Tdap) 07/14/16 G iven pneumococcal 23-valent vaccine 07/14/16 Given 1Result Comment: 2018-12-14: Historical information-source unspecified Medications Cartia XT 120 mg/24 hours oral capsule, extended release Start: 06/26/23 9:25:00 EDT, 1 cap, PO, qAM, Disp# 90 cap, Refills: 3, Pharmacy: [id number] Start Date: 06/26/23 Status: Ordered cetirizine 10 mg oral tablet Start: 11/21/23 10:56:00 EST, 1 tab, PO, Daily, Disp# 30 tab, PRN: rash, Pharmacy: [id number] Start Date: 11/21/23 Status: Ordered desonide 0.05% topical lotion Start: 05/27/22 10:41:00 EDT, 1 appl, topical, bid, Disp# 59 mL, Refills: 0, Apply topically to neck, legs and other affected areas, Pharmacy: [id number] Start Date: 05/27/22 Status: Ordered Diprolene AF 0.05% topical cream Start: 11/21/23 10:55:00 EST, 1 appl, topical, bid, Disp# 15 g, Pharmacy: [id number] Start Date: 11/21/23 Status: Ordered EPA Fish Oil 1000 mg oral capsule Start: 10/23/18 14:17:00 EST, 2 caps, PO, qPM Start Date: 10/23/18 Status: Ordered fenofibrate 48 mg oral tablet Start: 06/12/23 11:58:00 EDT, See Instructions, Disp# 90 tab, Refills: 3, TAKE 1 TABLET BY MOUTH EVERY DAY, Pharmacy: [id number] Start Date: 06/12/23 Status: Ordered fluticasone 50 mcg/inh nasal spray Start: 05/27/22 10:39:00 EDT, See Instructions, Disp# 16 g, Refills: 3, SPRAY 2 SPRAYS IN EACH NOSTRIL EVERY DAY NEEDED FOR ALLERGY SYMPTOMS, Pharmacy: [id number] Start Date: 05/27/22 Status: Ordered hydroCHLOROthiazide 12.5 mg oral tablet Start: 08/21/23 11:38:00 EST, 1 tab, PO, Daily, Disp# 90 tab, Refills: 3, Pharmacy: [id number] Start Date: 08/21/23 Status: Ordered MiraLax oral powder for reconstitution Start: 11/19/20 8:57:00 EST, See Instructions, Disp# 12 each, dissolve in water or juice, PRN: constipation, Pharmacy: [id number] Start Date: 11/19/20 Status: Ordered spironolactone 50 mg oral tablet Start: 09/29/23 14:17:00 EST, 1 tab, PO, bid, Disp# 180 tab, Refills: 3, Pharmacy: [id number] Start Date: 09/29/23 Status: Ordered Voltaren 1% topical gel Start: 09/08/22 11:52:00 EST, 2 g =, topical, qid, Disp# 100 g, use on R arm and chest painful spot, PRN: Pain, Pharmacy: [id number] Start Date: 09/08/22 Status: Ordered Mental Status 11/21/23 Barriers to Learning one year Vision imp airment Mandatory Health Literacy Documentation Yes Health Literacy Communication Barriers N ever Primary Language German Problem List Condition Confirmation Course Effective Dates Status Health Status Informant Abdominal mass Confirmed Active High risk for hip fracture Confirmed Active CKD (chronic kidney disease) Confirmed Active Cough Confirmed Active Rash of back Confirmed Active History of thymoma 1, 2 Confirmed Active HLD (hyperlipidemia) Confirmed Active Hyperparathyroidism Confirmed Active HTN (hypertension) Confirmed Active 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 2s/p resection Diagnosis Diagnosis Type Effective Dates Health Status Cl inical Service Informant Body mass index [BMI] 22.0-22.9, adult Discharge Diagnosis 11/21/23 Non-Specified Rash of back Discharge Diagnosis 11/21/23 Procedures Procedure Date Related Diagnosis Body Site Status Chest X-ray 1 05/27/22 Completed Mammogram 2 12/24/21 Completed DEXA - dual energy X-ray abs orptiometry 3 07/19/21 Completed Shave biopsy of skin 01/28/21 Comp leted bilateral digital screening mammogram tomosynthesis with synthetic 2D with CAD 4 12/23/20 Completed Chest x-ray 5 10/21/20 Completed Colonoscopy 6, 7 08/26/20 Complete d Pathology report 8 08/26/20 Comple bryon X-ray of left knee 9 06/03/19 Comp leted Thymectomy 10/2018 Completed DEXA (dual energy X-ray abso rptiometry) of lateral spine 10 10/16/17 Completed Ultrasound scan of thyroid 11 10/04/17 Completed Polypectomy- uterine 10/17/16 Comp leted Colonoscopy 12, 13 03/27/15 Comple bryon Cholecystectomy 1992 Completed 1No acute abnormalities and in particular no evidence of pneumonia. 2Impression: There is no mammographic evidence of maligancy. A 1 year screening mammogram is recommended. 3AP Spine L1-L2 -1.8 DualFemur Total Mean -1.5 Z-Score -0.5 4Impression: ACR BI RADS CATEGORY 2: Benign There is no mammographic evidence of malignancy. A 1 year screening is recommended. (12/24/2021) 5No active disease in the chest. 6Pathology result demonstrated one tubular adenoma. Repeat colonoscopy recommendation in 5 years. 7COLO to cecum, 3 mm splenic flexure polyp cold forceps removed. 8Diagnosis: 1. polyp, splenic flexure, polypectomy: -tubular adenoma 9Impression Negative study 103.2% 10 yr risk of hip fracture 11multinodular thyroid gland. No parathyroid masses were visularized. 12was clear, so repeat in 2024 13Repeat 5-10 years Vital Signs Most recent to oldest [Reference Range]: 1 Height 156 cm (11/21/23 10:37 AM) Patient Weight 54.8 kg (11/21/23 10:37 AM) Body Mass Index 22.52 kg/m2 (11/21/23 10:37 AM) Heart Rate 79 bpm (11/21/23 10:37 AM) Respiratory Rate 12 br/min (11/21/23 10:37 AM) Blood Pressure 120/80mmHg (11/21/23 10:37 AM) Cuff Pulse Pressure 40 mmHg (11/21/23 10:37 AM) Social History Social History Type Response Smoking Status Never smoked cigaret lucie Sex Female FCM Outpt Note * FINESSE Childs, Johanna Junior: PERFORM Event Display: FCM Outpt Note Authored Date: Chief Complaint rash on back 2-3 days only on her back denies pain History of Present Illness Patient is a 73yo female who presents today for acute visit. Rash: -Complaining of rash only affecting back -Unsure of when it really started but worse when she returned [facility] from [place] -Does not know of any specific medication, food or environmental trigger. -, who was with her on the trip, has no rash or itching -Was at the beach but laying on the sand which is the only thing she can recall being different -Only itches without any burning or pain, fever, chills, fatigueor GI sx Review of Systems ROS per HPI Physical Exam Vitals & Measurements HR:79(Monitored) RR:12 BP:120/80 SpO2:99% HT:156cm WT:54.8kg WT:54.800kg(Dosing) BMI:22.52 PHQ2 Data(Data Documented on:11/21/2023 10:37) Emotional health assessment NEGATIVE Skin: Approximately 8 individual purpura along the spine. No other petechia or purpura noted elsewhere on the skin Assessment/Plan 1.Rash of back STATUS:Acute, uncomplicated. -Complaining of rash only affecting back -Unsure of when it really started but worse [place] -Does not know of any specific medication, food or environmental trigger. -, who was with her on the trip, has no rash or itching -Was at the beach but laying on the sand which is the only thing she can recall being different -Only itches without any burning or pain, fever, chills or GI sx DATA:Labs reviewed. GOAL:Maintain stability. PLAN:Cont current monitoring. Unsure of etiology given itching as her only symptom Diprolene AF cream 2-3x daily for the next 1-2 weeks Add Zyrtec 10mg daily If rash is not improved will get labs including CBC and send to dermatology for biopsy Time spent on pre-visit plannin min Face to face time spent w/ patient:14 min Time spent documenting pertinent clinical information into the EMR:5 min Total time: 22 min Problem List/Past Medical History Ongoing Abdominal mass Age related osteoporosis Arthritis CKD (chronic kidney disease) Cough Degenerative lumbar disc| Status: Inactive Elevated serum immunoglobulin free light chains Hematuria| Status: Inactive High risk for hip fracture History of thymoma HLD (hyperlipidemia) HTN (hypertension) Hyperparathyroidism Left knee DJD Lentigines| Status: Inactive Mallet finger of left hand Multiple thyroid nodules| Status: Inactive Osteopenia Rash of back Scoliosis| Status: Inactive Seborrheic keratosis| Status: Inactive Statin intolerance Thymoma Historical BPPV (benign paroxysmal positional vertigo) Procedure/Surgical History Chest X-ray| Service Date: 2022Mammogram| Service Date: 2DEXA - dual energyX-ray absorptiometry| Service Date: 1Shave biopsy of skin| Service Date: 1bilateral digital screening mammogram tomosynthesis with synthetic 2D with CAD| Service Date: 1Chest x-ray| Service Date: 10/21/2020athology report| Service Date: 08/26/2020Colonoscopy| Service Date: 08/26/2020X-ray of left knee| Service Date: 06/03/2019Thymectomy| Service Date: 10/2018DEXA (dual energy X-ray absorptiometry) of lateral spine| Service Date: 10/16/2017Ultrasound scan of thyroid| Service Date: 10/04/2017Polypectomy- uterine| Service Date: 10/17/2016Colonoscopy| Service Date: 03/27/2015Cholecystectomy| Service Date: 1992 Medications betamethasone topical(Diprolene AF 0.05% topical cream), 1 appl, topical, bid cetirizine(cetirizine 10 mg oral tablet), 10 mg= 1 tab, PO, Daily, PRN desonide topical(desonide 0.05% topical lotion), 1 appl, topical, bid diclofenac topical(Voltaren 1% topical gel), 2 g, topical, qid, PRN dilTIAZem(Cartia XT 120 mg/24 hours oral capsule, extended release), 1 cap, PO, qAM fenofibrate(fenofibrate 48 mg oral tablet), See Instructions fluticasone nasal(fluticasone 50 mcg/inh nasal spray), See Instructions, 3 refills hydroCHLOROthiazide(hydroCHLOROthiazide 12.5 mg oral tablet), 1 tab, PO, Daily omega-3 polyunsaturated fatty acids(EPA Fish Oil 1000 mg oral capsule), 2 caps, PO, qPM polyethylene glycol 3350(MiraLax oral powder for reconstitution), See Instructions, PRN spironolactone(spironolactone 50 mg oral tablet), 1 tab, PO, bid Allergies alendronatejaw pain amLODIPineedema atorvastatinmyalgia lisinoprilcough losartanleg pain metoprololchest pain rosuvastatinmyalgia simvastatinmyalgia Social History Smoking Status Never smoked cigarettes Alcohol - Denies Alcohol Use Exercise - Regular exercise Home/Environment Lives with:Spouse Living situation:Home/Independent Tobacco - No Risk Family History Melanoma in situ of skin: Mother. Health Status Family Member(s) Father: History is negative Family Member(s) Relationship: Mother, Age: 94 Years, Cause: old age Relationship: Father, Age: 67 Years, Cause: abdominal tumor Immunizations Vaccine Date Status influenza virus vaccine, inactivated 06/30/2023 Recorded influenza virus vaccine, inactivated 06/30/2021 Given influenza virus vaccine, inactivated 07/11/2019 Recorded zoster vaccine, inactivated 12/12/2018 Recorded Comments : 2018-12-14: Historical information-source unspecified zoster vaccine, inactivated 10/12/2018 Recorded pneumococcal 13-valent vaccine 06/04/2018 Recorded pneumococcal 13-valent vaccine 06/04/2018 Recorded influenza virus vaccine, inactivated 06/01/2018 Given influenza virus vaccine, inactivated 07/25/2017 Given tetanus/diphtheria/pertuss, acel (Tdap) 07/14/2016 Given pneumococcal 23-valent vaccine 07/14/2016 Given influenza virus vaccine, inactivated 07/14/2016 Given Recommendations Health Maintenance Pending(in the next year) Due Adult COVID-19 Vaccination due11/21/23Unknown Frequency Adult Social Determinants of Health Screening due11/21/23Unknown Frequency Hepatitis C Screening due11/21/23One-time only Due In Future Medicare Annual Wellness Visit not due until12/08/23and every 1year Adult Influenza Vaccine not due until03/17/24and every 1year Satisfied(in the past 1 year) Satisfied Adult Influenza Vaccine on06/30/23.Satisfied by NICOLA Ennis Amber Body Mass Index on11/21/23.Satisfied by NICOLA Marie Paul Breast Cancer Screening on12/28/22.Satisfied by NICOLA Ayala Katrina Medicare Annual Wellness Visit on12/07/22.Satisfied by MD Alejo Dongsheng Electronic Signature on File Electronically Reviewed/Signed by: Johanna Childs PA-C Author Signature Dt/Tm:11/21/2023 11:11 AM Department of Family [facility] Patient Care team information Care Team Personnel Name: DO Lopez Amanda Position: Resident Member Role: Lifetime Relationship Address: Address: [address] [place] [id number] [place] Name: MD Alejo Dongsheng Position: Physician - Family Med Member Role: Primary Care Provider Address: Address: [address] [place] [address] Care Team Related Persons Name: NGHIA GALLEGO Address: home [address] [facility], [place] [phone] Name: CRISTEL MEREDITH Address: home [address] [facility], [place] [phone] Name: SEBASTIEN MEREDITH Address: home [address] [facility] [place] [phone] Name: MARCELO CASH"
[2023-11-24 16:52] LABS: ANTI-Xa, UFH(UnfractionatedHep 0.29 IU/ml (0.3-0.7)
[2023-11-24 21:53] LABS: A calco-baum cmplx NotReported Not Detected (NotDetected); Bact fragilis Not Reported Not Detected (NotDetected); Blood Culture Id Panel See PCR Comment (NotDetected); C auris Not Reported Not Detected (NotDetected); CTX-M Resistant Gene Not Detected (NotDetected); Calbicans Not Reported Not Detected (NotDetected); Candida glabrata Not Reported Not Detected (NotDetected); Candida krusei Not Reported Not Detected (NotDetected); Cneoformans/gatti Not Reported Not Detected (NotDetected); Cparapsilosis Not Reported Not Detected (NotDetected); E cloacae compx Not Reported Not Detected (NotDetected); Efaecalis Not Reported Not Detected (NotDetected); Efaecium Not Reported Not Detected (NotDetected); Enterobacterales DETECTED (NotDetected); Enterobacterales Not Reported DETECTED (NotDetected); Escherichia coli Not Reported DETECTED (NotDetected); H influenzae Not Reported Not Detected (NotDetected); IMP Resistant Gene Not Detected (NotDetected); K aerogenes Not Reported Not Detected (NotDetected); KPC Resistant Gene Not Detected (NotDetected); Koxytoca Not Reported Not Detected (NotDetected); Kpneumoniae grp Not Reported Not Detected (NotDetected); Lmonocyt Not Reported Not Detected (NotDetected); N meningitidis Not Reported Not Detected (NotDetected); NDM Resistant Gene Not Detected (NotDetected); OXA 48 Like Resistant Gene Not Detected (NotDetected); P aeruginosa Not Reported Not Detected (NotDetected); Proteus spp Not Reported Not Detected (NotDetected); Salmonella spp Not Reported Not Detected (NotDetected); Smarcescens Not Reported Not Detected (NotDetected); Staph lugdunensis Not Reported Not Detected (NotDetected); Staph spp. Not Reported Not Detected (NotDetected); Staphaureus Not Reported Not Detected (NotDetected); Staphepi Not Reported Not Detected (NotDetected); Stenmaltophilia Not Reported Not Detected (NotDetected); Strep agal(GrpB) Not Reported Not Detected (NotDetected); Strep pneum Not Reported Not Detected (NotDetected); Strep pyog (GrpA) Not Reported Not Detected (NotDetected); Strep spp Not Reported Not Detected (NotDetected); VIM Resistant Gene Not Detected (NotDetected); mcr-1 Colistin Resistant Gene Not Detected (NotDetected)
[2023-11-24] MEDS: CEFEPIME 2,000 MG in SYRINGE 0 ML IV STA (23:33)
[2023-11-24 23:40] LABS: ANTI-Xa, UFH(UnfractionatedHep 0.32 IU/ml (0.3-0.7)
--- NOTE | 2023-11-25 06:18 | Communication Note ---
Date of Service: November 25, 2023 Notified overnight that blood cultures resulted gram negative bacilli. Reviewed chart, patient received Ceftriaxone while in ED on day of admission. Patient is noted to have a history of urine cultures that have grown pansensitive e. coli, urine culture from this admission still pending at this time. I started Cefepime overnight. Troponin trending down, morning labs pending at this time.
[2023-11-25 06:26] LABS: Albumin Globulin Ratio 1.2 (0.9-2); Albumin Level 3.3 gm/dl (3.4-5.0); BUN Creatinine Ratio 19.9 (10-20); Bilirubin,Total 0.7 mg/dl (0.2-1.0); Calcium 7.8 mg/dl (8.6-10.3); Creatinine Clr Calc Pharmacy 28.3 ml/min; Est GFR (African American) 42.1 ml/min; Est GFR (Non-African American) 36.3 ml/min; Globulin 2.8 gm/dl (2.5-4.0); Magnesium 1.8 mg/dl (1.7-2.4); Potassium 3.9 mmol/L (3.5-5.1); Total Protein 6.1 gm/dl (6.0-8.3)
[2023-11-25 06:33] LABS: Hematocrit (blood only) 29.1 % (37.0-47.0); Mean Corpuscular Hemoglobin 29.9 pg (25.0-34.0); Mean Corpuscular Hgb Conc 34.4 g/dL (32.0-36.0); Mean Corpuscular Volume 87.1 fL (80.0-100.0); Mean Platelet Volume 9.6 fL (9.4-12.4); Platelet Count 250 K/uL (130-400); RDW Coefficient of Variation 11.5 % (11.5-14.5); Red Blood Count 3.34 M/uL (4.20-5.40); White Blood Count 13.94 K/ul (4.8-10.8)
[2023-11-25 06:34] LABS: Troponin I High Sensitivity 3859.5 pg/ml (0-14)
[2023-11-25 06:36] LABS: ANTI-Xa, UFH(UnfractionatedHep 0.25 IU/ml (0.3-0.7)
--- NOTE | 2023-11-25 07:26 | Hospitalist Progress Note ---
Date of Service November 25, 2023 Assessment & Plan (1) Sepsis: (2) Chronic kidney disease, stage III (moderate): (3) Elevated troponin: Plan 73 year old female presented with N/V/D: #Sepsis, Gram-negative bacteremia: - Presumed urinary source, positive UA, CTAP consistent with cystitis with ascending infection - Blood cx + gram negative bacilli, PCR +e. coli - Urine cx with 3 organisms, all high counts - Change abx to Ceftriaxone - s/p fluid resuscitation but still mildly hypotensive, consider additional crystalloids #Elevated Troponin: - Troponin peaked at 7700, subsequent trops trending downward - BNP 1866 - ECG with dynamic T-wave changes - TTE 11/23 with EF 25-30%, apical akinesis, mild LV outflow obstruction - more suggestive of stress-induced cardiomyopathy but low suspicion remains for possible ND - Cardiology consulted, appreciate recs: - Repeat TTE tomorrow. If showing improvement in wall movement (in line with what would be expected in stress-induced cardiomyopathy), will discontinue aspirin and heparin then - Consider beta anne therapy when blood pressure allows (Metoprolol 12.5mg BID) - metoprolol listed as an allergy with reaction of bradycardia and chest pain, review of records shows previous trial of metoprolol succinate 25mg daily - will clarify reaction with patient prior to initiation. - Plan for cardiac cath Monday #GEOVANI in patient with CKD: - Cr 1.73 on admission, baseline 1.2-1.3 - Likely prerenal in the setting of volume loss - S/p fluid resuscitation, repeat Cr 1.41 - Recheck AM labs #HTN: - Hold home antihypertensives until BP improves - Home meds: Cardizem 120mg QD, Spironolactone 50mg BID, HCTZ 25mg daily FEN: clear liquids, advance as tolerated VTE ppx: Heparin drip Dispo: anticipate discharge to home after cardiac workup Admission and Anticipated Discharge Date Admission Date: November 24, 2023 Supervising Physician Co-Signing Physician Notes Attending Physician Supervision Note: I independently interviewed and examined the patient and verified the lewis history and physical, reviewed labs and image studies and agree with findings and care plan noted above. Sepsis E coli bacteremia - likely urinary source though urine culture with more than 3 organisms. - continue IV abx. Acute cardiomyopathy with EF 25-30%, apical akinesis, LVOT obstruction, mild concentric LVH - Repeat echo in am. For heart cath on monday. - IV heparin, aspirin. BP low for b anne. New respiratory distress this evening - JVD+, echo with dilated IVC - In the setting of new CMP. -will give small dose of lasix 20mgs and monitor. Subjective Patient evaluated at bedside this morning, notes feeling much better this morning. At present, denies chest pain, SOB, N/V/D, fever/chills. Review of Systems Review of Systems: as per HPI Physical Exam Physical Exam: General: Alert and oriented. No acute distress Cardiac: Regular rate and rhythm, no murmurs appreciated Respiratory: Lungs clear to auscultation bilaterally, No increased work of breathing Abdominal: Soft, non-tender, non-distended. Bowel sounds present. Extremities: warm, well perfused Psych: AOx3, mood affect congruence Results & Data Results & Data Vital Signs (Past 12 Hours) Vital Signs Temp Pulse Pulse Resp BP Pulse Ox O2 Del Method 11/25/23 03:22 37.4 C 84 27 H 109/62 92 Room Air 11/24/23 23:38 36.7 C 89 34 H 101/49 L 91 Room Air 11/24/23 23:19 77 11/24/23 22:42 Room Air Resident Activity Tracking Resident Involvement: Resident Care Provided Care Provided: Adult Hospital Medicine (1) Sepsis Sepsis acute organ dysfunction status: with acute organ dysfunction Sepsis type: sepsis due to unspecified organism Severe sepsis acute organ dysfunction type: unspecified Severe sepsis shock status: unspecified Qualified Code(s): A41.9 - Sepsis, unspecified organism; R65.20 - Severe sepsis without septic shock
[2023-11-25] MEDS: ACETAMINOPHEN 325 MG TAB PO PRN (07:53)
[2023-11-25] MEDS: ASPIRIN 81 MG ECTAB PO SCH (07:54)
--- NOTE | 2023-11-25 08:46 | Electrocardiogram Report ---
Test Reason : Blood Pressure : / mmHG Vent. Rate : 084 BPM Atrial Rate : 084 BPM P-R Int : 186 ms QRS Dur : 084 ms QT Int : 362 ms P-R-T Axes : 046 078 000 degrees QTc Int : 427 ms Sinus rhythm with frequent Premature ventricular complexes Low voltage QRS Diffuse Minor Nonspecific T wave abnormality Abnormal ECG When compared with ECG of 24-NOV-2023 07:42, Premature ventricular complexes are now Present Premature atrial complexes are no longer Present Nonspecific T wave abnormality has replaced inverted T waves in Anterolateral leads Confirmed by Ronaldo Valles ([id number]) on 11/25/2023 8:46:03 AM Referred By: REFERRED SELF Confirmed By:Ronaldo Valles
[2023-11-25] MEDS: PANTOprazole 40 MG TAB PO SCH (10:00)
[2023-11-25] MEDS: CEFEPIME 1,000 MG in SYRINGE 0 ML IV SCH (11:54)
--- NOTE | 2023-11-25 13:11 | Cardiology Consultation ---
Date of Consultation November 25, 2023 Assessment & Plan (1) Apical myocardial infarction: (2) Left ventricular outflow tract obstruction: (3) Sepsis: (4) Chronic kidney disease, stage III (moderate): Plan 73-year-old woman with history of hypertension, no other cardiac history, admitted with urosepsis/bacteremia and noted to have significant cardiac findings of markedly elevated troponin, wall motion abnormalities on echocardiogram, and dynamic T wave changes on ECG. Although her epigastric pain could have represented acute conventional infarct, her quick recovery and the absence of more sustained/dramatic ECG findings as well as the symmetric distribution of wall motion abnormalities on echocardiogram are much more suggestive of Takotsubo syndrome/stress cardiomyopathy. Mainstay of treatment for stress cardiomyopathy is beta-anne therapy, however the patient remains mildly hypotensive. Fortunately, this appears asymptomatic and she does not seem to be hypoperfused. As soon as adequate blood pressure allows, would initiate at least low-dose beta-anne (12.5 mg metoprolol tartrate p.o. every 12 hours). Her dynamic LVOT obstruction is likely due to volume depletion from nausea/vomiting/diarrhea, likely this has resolved with fluid resuscitation. There is no murmur currently to suggest ongoing dynamic obstruction. However, if BP remains low, would consider additional IV fluids to attain normotensive BP. Since there is a small chance this was a conventional infarct, agree with continuing aspirin and heparin for now. Will check repeat echocardiogram tomorrow, if this shows recovery of wall motion it would strongly argue for this being a stress cardiomyopathy and the heparin could be discontinued. Further evaluation of coronaries will be necessary given the extent of wall motion abnormality, will proceed to cardiac catheterization Monday to definitively clarify whether she had acute coronary occlusion (conventional OR) or wall motion abnormality secondary to stress cardiomyopathy. If ejection fraction does not improve and she has persistent cardiomyopathy, additional medications according to guideline directed medical therapy may be necessary (carvedilol, ARB or Entresto, spironolactone). History of Present Illness Reason for Consultation: elevated trop, concern for stress cardiomyopathy Requesting Physician: Liana Jiménez MD Attending Physician: Liana Jiménez MD History of Present Illness 73-year-old woman with no cardiac history aside from hypertension, admitted 11/24/2023 with apparent urosepsis and noted to have ECG changes, troponin elevation, and significant wall motion abnormality on echocardiogram. At baseline she is fairly sedentary but notes no exertional symptoms of chest pain or dyspnea. She denies chest pain at any time but did have epigastric discomfort with associated nausea and vomiting, she also had diarrhea. Leukocytosis, elevated lactate and procalcitonin, and apparent gram-negative UTI/bacteremia suggest primary infectious process. She denies chest pain at any time and notes no dyspnea, palpitations, presyncope, or syncope. Cardiac evaluation notable for initial 4 troponins in the [id number] range (dropping today to 3859),ECG with anterior T wave inversions (which resolved), and significant echocardiographic abnormalities (akinesis of apex/distal two thirds of the heart/EF 25-30%, mild LVOT dynamic obstruction, moderate pulmonary hypertension). She had no somatic complaints at the time my evaluation this afternoon. Allergies Allergy/AdvReac Type Severity Reaction Status Date / Time lisinopril AdvReac Severe cough Verified 07/04/23 13:30 amlodipine AdvReac Unknown ankle Verified 07/04/23 13:30 swelling metoprolol AdvReac Unknown bradycardia, Verified 07/04/23 13:30 chest pain Qoqjdyz-RWP-MrN Reductase AdvReac Unknown muscle & Verified 07/04/23 13:30 Inhibitor joint pain [Ffpefkt-Sui-Vjl Reductase Inhibitor] Home Medications Medication Instructions Recorded Confirmed Type fenofibrate nanocrystallized 48 mg 48 mg PO QAM 08/21/20 11/24/23 History tablet diltiazem HCl 120 mg 120 mg PO QAM #30 caps 10/28/20 11/24/23 Rx capsule,extended release 24 hr (Cardizem CD) omega 2-hmx-mxl-fish oil 1,200 mg 0 cap PO QAM 10/28/20 11/24/23 History (144 mg-216 mg) capsule (Fish Oil) spironolactone 50 mg tablet 50 mg PO BID 10/28/20 11/24/23 History denosumab 60 mg/mL subcutaneous 60 mg subcut .j5xmmkju #1 mL 03/24/23 11/24/23 Rx syringe (Prolia) cholecalciferol (vitamin D3) 25 0 mcg PO QPM 05/05/23 11/24/23 History mcg (1,000 unit) capsule hydrochlorothiazide 12.5 mg tablet 12.5 mg PO QAM 05/05/23 11/24/23 History betamethasone, augmented 0.05 % 1 applic topical BID 11/24/23 11/24/23 History topical cream meclizine 12.5 mg tablet 0 mg PO TID PRN dizziness 11/24/23 11/24/23 History Patient History Medical History Age related osteoporosis Hyperlipidemia HTN (hypertension) Surgical History Hx of cataract extraction rt. 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 BP mildly hypotensive. Pulse 7 bpm and regular. Respirations 17 and unlabored. Skin: no ecchymoses or generalized lesions. HEENT: unremarkable. Neck: JVP at the clavicle at 90 degrees, no carotid bruits. Lungs: clear. Cardiac: regular rhythm, normal S1-2, no murmur. Abdomen: benign. Extremities: no edema, pulses intact. Neurologic: normal affect and conversation, nonfocal. Results & Data Vital Signs (Past 12 Hours) Vital Signs Temp Pulse Pulse Resp BP Pulse Ox O2 Del Method 11/25/23 11:31 87 11/25/23 11:12 97.9 F 72 17 90/60 L 93 Room Air 11/25/23 09:00 98.1 F 11/25/23 07:37 100.8 F H 84 19 99/65 L 93 Room Air 11/25/23 03:22 99.3 F 84 27 H 109/62 92 Room Air Laboratory Results WBC 13.94, hemoglobin 10, normal platelet count. Sodium 132, potassium 3.9, BUN 28, creatinine 1.41. Troponins as per HPI. BNP 1866. Procalcitonin 23.6. Lactate 2.9 dropping to 1.9. Diagnostic Findings ECGs as per HPI. Chest x-ray benign. Echocardiogram as per HPI. PG Care Time/CCT Total # of Minutes Spent Total Time Spent with Patient: Total time spent is greater than 50% in coordination of care (as documented) at patient's floor/unit and/or counseling patient: Coding Level of Care Code 84407 INT INP/OBS CARE 3/75MIN Diagnoses Apical myocardial infarction I21.29 Left ventricular outflow tract obstruction Q24.8 Sepsis A41.9; R65.20 Sepsis acute organ dysfunction status: with acute organ dysfunction Sepsis type: sepsis due to unspecified organism Severe sepsis acute organ dysfunction type: unspecified Severe sepsis shock status: unspecified Chronic kidney disease, stage III (moderate) N18.30 (3) Sepsis Sepsis acute organ dysfunction status: with acute organ dysfunction Sepsis type: sepsis due to unspecified organism Severe sepsis acute organ dysfunction type: unspecified Severe sepsis shock status: unspecified Qualified Code(s): A41.9 - Sepsis, unspecified organism; R65.20 - Severe sepsis without septic shock
[2023-11-25 13:27] LABS: ANTI-Xa, UFH(UnfractionatedHep 0.31 IU/ml (0.3-0.7)
[2023-11-25] MEDS: cefTRIAXone SODIUM 2,000 MG in DEXTROSE 5 % MINI-B 50 ML IV SCH (17:29)
--- NOTE | 2023-11-25 17:41 | XRay Report ---
XR chest 1V portable CLINICAL HISTORY: SOB TECHNIQUE: Single frontal radiograph of the chest was obtained. Comparison: Comparison is made to chest radiograph 11/24/2023 FINDINGS: No lines and tubes are seen. The cardiomediastinal silhouette is normal. The lungs are clear. No evid ence of pleural effusion or pneumothorax. IMPRESSION: No acute abnormalities and in particular no radiographic evidence of pneumonia. ACT 112: Negative or not required by law. Electronically signed by: Subhash Sweeney M.D. 11/25/2023 5:40 PM
[2023-11-25] MEDS: FUROSEMIDE INJ 20 MG/2 ML VIAL IV ONE (18:19)
[2023-11-26 06:53] LABS: Mean Corpuscular Hemoglobin 29.7 pg (25.0-34.0); Mean Corpuscular Hgb Conc 34.6 g/dL (32.0-36.0); Mean Corpuscular Volume 85.8 fL (80.0-100.0); Mean Platelet Volume 9.6 fL (9.4-12.4); Platelet Count 251 K/uL (130-400); RDW Coefficient of Variation 11.6 % (11.5-14.5); RDW Standard Deviation 36.3 fL (36.4-46.3); Red Blood Count 3.03 M/uL (4.20-5.40); White Blood Count 9.48 K/ul (4.8-10.8)
[2023-11-26 07:04] LABS: Albumin Globulin Ratio 1.1 (0.9-2); BUN Creatinine Ratio 17.6 (10-20); Bilirubin,Total 0.4 mg/dl (0.2-1.0); Calcium 7.6 mg/dl (8.6-10.3); Creatinine Clr Calc Pharmacy 33.4 ml/min; Est GFR (African American) 51.7 ml/min; Est GFR (Non-African American) 44.6 ml/min; Globulin 2.8 gm/dl (2.5-4.0); Magnesium 1.8 mg/dl (1.7-2.4); Potassium 3.6 mmol/L (3.5-5.1); Total Protein 5.8 gm/dl (6.0-8.3)
--- NOTE | 2023-11-26 07:25 | Hospitalist Progress Note ---
Date of Service November 26, 2023 Assessment & Plan (1) Sepsis: (2) Chronic kidney disease, stage III (moderate): (3) Elevated troponin: Plan 73 year old female presented with N/V/D: #Sepsis, Gram-negative bacteremia: - Presumed urinary source, positive UA, CTAP consistent with cystitis with ascending infection - Blood cx + pansensitive e. coli - Urine cx with 3 organisms, all high counts - Continue Ceftriaxone, day 3 of abx - Given symptoms of fluid overload yesterday, will refrain from giving more IV fluids #Elevated Troponin: - Troponin peaked at 7700, subsequent trops trending downward - BNP 1866 on admission - ECG 11/24 with dynamic T-wave changes - TTE 11/23 with EF 25-30%, apical akinesis, mild LV outflow obstruction - Repeat TTE 11/25 relatively unchanged - Cardiology consulted, appreciate recs: - Given that repeat TTE relatively unchanged, will proceed with cardiac catheterization tomorrow - NPO at midnight - Defer consideration of beta anne therapy until after cardiac cath - metoprolol listed as an allergy with reaction of bradycardia and chest pain, review of records shows previous trial of metoprolol succinate 25mg daily - will clarify reaction with patient prior to initiation. - Continue Aspirin - Continue Heparin overnight, will discontinue tomorrow AM at 72 hour allegra. #GEOVANI in patient with CKD: - Cr 1.73 on admission, baseline 1.2-1.3 - Likely prerenal in the setting of volume loss - S/p fluid resuscitation - AM Cr 1.19 - Recheck AM labs #HTN: - Hold home antihypertensives until BP improves - Home meds: Cardizem 120mg QD, Spironolactone 50mg BID, HCTZ 25mg daily FEN: HH, NPO @ midnight VTE ppx: Heparin drip Dispo: anticipate discharge to home after cardiac workup, will need PT/OT evals Admission and Anticipated Discharge Date Admission Date: November 24, 2023 Supervising Physician Co-Signing Physician Notes Attending Physician Supervision Note: I independently interviewed and examined the patient and verified the lewis history and physical, reviewed labs and image studies and agree with findings and care plan noted above. Sepsis E coli bacteremia - likely urinary source though urine culture with more than 3 organisms. - continue IV abx. - In setting new CMP - assess the need for DYLLAN after LHC? Acute cardiomyopathy with EF 25-30%, apical akinesis, LVOT obstruction, mild concentric LVH - Possibly Takotsubo - Repeat echo with no improvement in EF. For heart cath on monday. - IV heparin, aspirin. Has h/o b anne intolerance. Acute systolic heart failure - s/p one dose 20mgs lasix with improvement. N/V sec to gastroenteritis d/t food - resolved. PPI helping with heartburn. Will need another method for DVT proph after stopping heparin drip in am. Subjective Patient evaluated at bedside this morning, notes feeling much better after receiving dose of Lasix last night, no longer experiencing SOB or dry cough. Denies abdominal pain, N/V/D, would like to progress diet to solid food. Review of Systems Review of Systems: as per HPI Physical Exam Physical Exam: General: Alert and oriented. No acute distress Cardiac: Regular rate and rhythm, no murmurs appreciated. No JVD appreciated. Respiratory: Lung sounds slightly diminished in bases but otherwise clear to auscultation bilaterally, No increased work of breathing Abdominal: Soft, non-tender, non-distended. Bowel sounds present. Extremities: warm, well perfused Psych: AOx3, mood affect congruence Results & Data Results & Data Vital Signs (Past 12 Hours) Vital Signs Temp Pulse Pulse Resp BP Pulse Ox O2 Del Method 11/26/23 03:18 37.5 C 80 20 96/61 L 94 Room Air 11/25/23 23:07 37.2 C 82 22 106/63 91 Room Air 11/25/23 22:56 82 11/25/23 20:49 Room Air 11/25/23 19:28 36.8 C 95 H 27 H 113/63 95 Room Air Resident Activity Tracking Resident Involvement: Resident Care Provided Care Provided: Adult Hospital Medicine (1) Sepsis Sepsis acute organ dysfunction status: with acute organ dysfunction Sepsis type: sepsis due to unspecified organism Severe sepsis acute organ dysfunction type: unspecified Severe sepsis shock status: unspecified Qualified Code(s): A41.9 - Sepsis, unspecified organism; R65.20 - Severe sepsis without septic shock
[2023-11-26 07:26] LABS: ANTI-Xa, UFH(UnfractionatedHep 0.34 IU/ml (0.3-0.7)
--- NOTE | 2023-11-26 08:41 | XCELERA ---
[id number]
--- NOTE | 2023-11-26 12:06 | Cardiology Progress Note ---
Date of Service November 26, 2023 Assessment & Plan (1) Apical myocardial infarction: (2) Left ventricular outflow tract obstruction: (3) Sepsis: (4) Chronic kidney disease, stage III (moderate): Plan 73-year-old woman with history of hypertension, no other cardiac history, admi tted 11/24/2023 with urosepsis/bacteremia and noted to have significant cardiac findings of markedly elevated troponin, wall motion abnormalities on echocardiogram, and dynamic T wave changes on ECG. Doing well with no symptoms, hemodynamics are favorable and no dysrhythmias. No evidence of heart failure or ongoing myocardial ischemia. Etiology of her echocardiographic wall motion abnormality remains uncertain, Takotsubo versus conventional coronary occlusion/myocardial infarction. Unfortunately, she did not demonstrate improvement in her wall motion abnormality on follow-up echo today, therefore proceed to coronary catheterization tomorrow to further assess. Ideally would like to have at least low-dose beta-anne on board given possible Takotsubo, but she did have an intolerance to even low-dose beta- anne in the past and she has not shown any tendency to tachycardia or hypertension currently. Since she is likely at least temporarily adrenergically depleted if she did have recent Takotsubo, reasonable to hold off on any beta- anne until after cardiac catheterization tomorrow illuminates likely etiology for her infarct/wall motion abnormality. Continue aspirin until coronaries are assessed. Continue heparin overnight, can discontinue heparin tomorrow morning (she will have received 72 hours and she will be headed to catheterization). If ejection fraction does not improve and she has persistent cardiomyopathy, additional medications according to guideline directed medical therapy may be necessary (carvedilol, ARB or Entresto, spironolactone). I will inform Dr. Rodriguez of this patient's status, as he will be covering the cardiology service this coming week. Admission and Anticipated Discharge Date Admission Date: November 24, 2023 Subjective Uneventful night. She feels quite well, noting no dyspnea, chest discomfort, palpitations, or other somatic complaints. Follow-up echocardiogram showed no change in her significant wall motion abnormality (apex/distal half of the left ventricle) or ejection fraction (EF 25% range). Inquired about beta-anne intolerance noted in chart. It appears that she was initiated on metoprolol succinate 25 mg daily in 2020, she notes that after 2 weeks she felt poorly and documentation suggests that she was bradycardic. Telemetry showed sinus rhythm in the 70-90 bpm range with sporadic atrial and ventricular ectopy but no dysrhythmias. Physical Exam Physical Exam: No distress. BP low normal. Pulse 79 bpm and regular. Respirations 19 and unlabored. Skin: no ecchymoses or generalized lesions. HEENT: unremarkable. Neck: JVP at the clavicle at 90 degrees, no carotid bruits. Lungs: clear. Cardiac: regular rhythm, normal S1-2, no murmur. Abdomen: benign. Extremities: no edema, pulses intact. Neurologic: normal affect and conversation, nonfocal. Results & Data Laboratory Results Troponin peaked at 3859 yesterday and later dropped to 2453. Sodium 132, normal potassium, BUN 21, creatinine 1.19. PG Care Time/CCT Total # of Minutes Spent Total Time Spent with Patient: Total time spent is greater than 50% in coordination of care (as documented) at patient's floor/unit and/or counseling patient: Coding Level of Care Code 78318 SUB INP/OBS CARE 3/50MIN Diagnoses Apical myocardial infarction I21.29 Left ventricular outflow tract obstruction Q24.8 Sepsis A41.9; R65.20 Sepsis acute organ dysfunction status: with acute organ dysfunction Sepsis type: sepsis due to unspecified organism Severe sepsis acute organ dysfunction type: unspecified Severe sepsis shock status: unspecified Chronic kidney disease, stage III (moderate) N18.30 (3) Sepsis Sepsis acute organ dysfunction status: with acute organ dysfunction Sepsis type: sepsis due to unspecified organism Severe sepsis acute organ dysfunction type: unspecified Severe sepsis shock status: unspecified Qualified Code(s): A41.9 - Sepsis, unspecified organism; R65.20 - Severe sepsis without septic shock
[2023-11-26] MEDS ORDERED: COUGH DROP (SUGAR FREE) LOZ 24 LOZ/1 BOX BUCCAL PRN (20:51)
[2023-11-26] MEDS: guaiFENesin/DEXTROM SYRUP 100MG/10MG 5ML UDC PO PRN (22:19)
[2023-11-27 06:54] LABS: Hematocrit (blood only) 26.9 % (37.0-47.0); Hemoglobin 9.3 g/dl (12.0-16.0); Mean Corpuscular Hgb Conc 34.6 g/dL (32.0-36.0); Mean Corpuscular Volume 86.8 fL (80.0-100.0); Mean Platelet Volume 9.7 fL (9.4-12.4); Platelet Count 270 K/uL (130-400); RDW Coefficient of Variation 11.9 % (11.5-14.5); RDW Standard Deviation 37.4 fL (36.4-46.3); White Blood Count 8.65 K/ul (4.8-10.8)
--- NOTE | 2023-11-27 06:55 | Hospitalist Progress Note ---
Date of Service November 27, 2023 Assessment & Plan (1) Sepsis: (2) Chronic kidney disease, stage III (moderate): (3) Elevated troponin: Plan 73 year old female presented with N/V/D: #Sepsis, Gram-negative bacteremia: - Presumed urinary source, positive UA, CTAP consistent with cystitis with ascending infection - Blood cx + pansensitive e. coli - Urine cx with 3 organisms, all high counts - Continue Ceftriaxone, day 4 of abx, plan to convert to PO abx tomorrow, pharmacy recommending Levofloxacin #Elevated Troponin: - Troponin peaked at 7700, subsequent trops trended downward - BNP 1866 on admission - TTE 11/23 with EF 25-30%, apical akinesis, mild LV outflow obstruction - Repeat TTE 11/25 relatively unchanged - Cardiology consulted, appreciate recs: - s/p cardiac cath - significant for nonischemic cardiomyopathy, most likely stress-induced - Continue Aspirin - Start Losartan 25mg daily for afterload reduction - BP consistently soft since admission, will hold home HCTZ, Diltiazem, Spironolactone indefinitely - consider reinitiating in the outpatient setting if average BP increases with cardiac recovery - h/o statin intolerance, consider trial of alternate statin, will defer to primary care - Will need outpatient cardiology follow up in 2 weeks. - PT/OT evaluation/treatment ordered #GEOVANI in patient with CKD: - Cr 1.73 on admission, baseline 1.2-1.3 - Likely prerenal in the setting of volume losses - S/p fluid resuscitation - Cr back to baseline #HTN: - As above. Hold home antihypertensives. FEN: HH VTE ppx: subQ Lovenox Dispo: PT/OT evals pending, likely discharge tomorrow. Admission and Anticipated Discharge Date Admission Date: November 24, 2023 Supervising Physician Co-Signing Physician Notes I personally examined the patient and verified all lewis points of history and exam, discussed case, and agree with decision making with Dr Mcneill feeling pretty good overall. Has not been out much since the heart cath. Discussed plans. She would prefer to be watched in the hospital initially. Sepsis E coli bacteremia - likely urinary source though urine culture with more than 3 organisms. - continue IV abx for now, likely able to go home on p.o. antibiotics given sensitivities. Acute cardiomyopathy with EF 25-30%, apical akinesis, LVOT obstruction, mild concentric LVH - Possibly Takotsubo - Cath without significant obstructive coronary disease. With her blood pressure as low as it is, heart rate being modestly low normal, I doubt she will be out of tolerated beta-anne. Afterload reduction with ARB. Follow with ambulation. Check blood pressure with her cuff versus ours to ensure accuracy of outpatient follow-up. As long as she is able to ambulate without significant symptoms, hopefully home tomorrow. Outpatient basic metabolic panel as well. Acute systolic heart failure - s/p one dose 20mgs lasix with improvement. N/V sec to gastroenteritis d/t food - resolved. PPI helping with heartburn. DVT proph - lovenox Subjective Patient evaluated at bedside this morning, notes feeling much better, still a bit weak/fatigued but feels that eating has helped. Denies abdominal pain, N/V/D. Denies urinary sx, CP, SOB. Discussed upcoming catheterization, questions answered. Review of Systems Review of Systems: as per HPI Physical Exam Physical Exam: General: Alert and oriented. No acute distress Cardiac: Regular rate and rhythm, no murmurs appreciated. No JVD appreciated. Respiratory: Lung sounds slightly diminished in bases but otherwise clear to auscultation bilaterally, No increased work of breathing Abdominal: Soft, non-tender, non-distended. Bowel sounds present. Extremities: warm, well perfused Psych: AOx3, mood affect congruence Results & Data Results & Data Vital Signs (Past 12 Hours) Vital Signs Temp Pulse Pulse Resp BP Pulse Ox O2 Del Method 11/27/23 03:18 37.5 C 77 16 96/56 L 96 Room Air 11/27/23 00:02 37.0 C 76 16 112/61 98 Room Air 11/26/23 23:12 75 11/26/23 21:47 Room Air 11/26/23 20:16 36.9 C 76 18 108/54 L 99 Room Air Resident Activity Tracking Resident Involvement: Resident Care Provided Care Provided: Adult Hospital Medicine (1) Sepsis Sepsis acute organ dysfunction status: with acute organ dysfunction Sepsis type: sepsis due to unspecified organism Severe sepsis acute organ dysfunction type: unspecified Severe sepsis shock status: unspecified Qualified Code(s): A41.9 - Sepsis, unspecified organism; R65.20 - Severe sepsis without septic shock
[2023-11-27 07:27] LABS: Albumin Globulin Ratio 1.1 (0.9-2); Albumin Level 3.1 gm/dl (3.4-5.0); BUN Creatinine Ratio 18.7 (10-20); Bilirubin,Total 0.3 mg/dl (0.2-1.0); Calcium 7.9 mg/dl (8.6-10.3); Creatinine Clr Calc Pharmacy 37.2 ml/min; Est GFR (African American) 58.8 ml/min; Est GFR (Non-African American) 50.7 ml/min; Globulin 2.9 gm/dl (2.5-4.0); Magnesium 1.8 mg/dl (1.7-2.4); Potassium 3.8 mmol/L (3.5-5.1)
[2023-11-27 08:10] LABS: ANTI-Xa, UFH(UnfractionatedHep 0.64 IU/ml (0.3-0.7)
--- NOTE | 2023-11-27 09:48 | Pre Anesthesia Assessment ---
Date of Service November 27, 2023 Pre Sedation Assessment Vital Signs Temp Pulse Pulse Resp BP Pulse Ox O2 Del Method 11/27/23 09:28 98.2 F 78 18 109/87 98 Room Air 11/27/23 07:45 98.2 F 72 16 95/65 L 97 Room Air 11/27/23 03:18 99.5 F 77 16 96/56 L 96 Room Air 11/27/23 00:02 98.6 F 76 16 112/61 98 Room Air 11/26/23 23:12 75 11/26/23 21:47 Room Air 11/26/23 20:16 98.4 F 76 18 108/54 L 99 Room Air 11/26/23 16:12 98.1 F 79 18 95/63 L 98 Room Air 11/26/23 15:29 84 11/26/23 11:37 98.4 F 79 19 112/67 98 Room Air Cardiovascular + regular rate Respiratory + respiratory effort normal Pre-Sedation Airway Assessment Smoking Status: Never smoker Hx Sleep Apnea: No Short, Thick Neck: No Thyromental Distance: > or= 3.5 Finger Breadths Oral Cavity: + Dentures Mallampati Class: III ASA: ASA3 NPO Status Date of Last Intake of Fluids: 11/26/23 Time of Last Intake of Fluids: 20:00 Date of Last Intake of Solid Food: 11/26/23 Time of Last Intake of Solid Foods: 20:00 Procedure Planning Contraindications for Sedation: none Current Medications Reviewed: Yes Notes The planned sedation has been discussed with the patient. Informed Consent was obtained. I have identified the patient, determined the appropriateness of sedation and have assessed the patient immediately prior to the procedure. All medicine(s) and interventions are by my order.
--- NOTE | 2023-11-27 10:36 | Post Anesthesia Assessment ---
Date of Service November 27, 2023 Post Sedation Assessment Vital Signs Temp Pulse Pulse Resp BP Pulse Ox O2 Del Method 11/27/23 09:28 98.2 F 78 18 109/87 98 Room Air 11/27/23 07:45 98.2 F 72 16 95/65 L 97 Room Air 11/27/23 06:00 73 11/27/23 03:18 99.5 F 77 16 96/56 L 96 Room Air 11/27/23 00:02 98.6 F 76 16 112/61 98 Room Air 11/26/23 23:12 75 11/26/23 21:47 Room Air 11/26/23 20:16 98.4 F 76 18 108/54 L 99 Room Air 11/26/23 16:12 98.1 F 79 18 95/63 L 98 Room Air 11/26/23 15:29 84 11/26/23 11:37 98.4 F 79 19 112/67 98 Room Air Recovery Score Activity: Moves 4 extremities Respiration: Deep Breath/Cough Circulation: +/-20% PreAnes Value Consciousness: Fully Awake Oxygen Saturation: > 92% On Room Air Discharge Sedation Level of Care: Fast Track Phase II Post Sedation Plan On clinical assessment, the patient appears to have tolerated the sedation without complications. Patient is recovering as anticipated. Patient will continue to be monitored by nursing and may be discharged when sedation discharge criteria are met per below protocol. Upon Completions of procedure up to 15 minutes continue every 5 minute vital signs and the P.A.R. score; then discharge to a Phase I or Fast Track to Phase II per the following guidelines: * Discharge Patient to appropriate Phase II area if PAR is 8 or greater or return to pre- procedure baseline. The post - procedure orders will be as directed. * If PAR score is less than 8 or not return to pre-procedure baseline then patient will follow Phase I monitoring till PAR is reached for Phase II. The Phase I may be done in procedure room or may call to secure a Phase I area. * If naloxone or flumazenil are used for reversal, hold in Phase I for continued monitoring from when last reversal dose was given for a minimum of 60 minutes or longer pending the nurse and/or physician discretion of patient condition before discharge to Phase II. Please call the Sedation Physician to re-evaluate and complete post-note for discharge to Phase II area. Do NOT discharge from procedure sedation or Phase 1 until post- sedation evaluation note is complete by procedure /sedation MD Sedation Discharge Instructions to be given to the patient at discharge to home.
--- NOTE | 2023-11-27 10:45 | Cardiac Catheterization ---
[facility] Data: Supervisory Aide Cardiac Status Clinical evaluation leading to the procedure CAD Presenation: Non STEMI Anginal Classification: CCS IV Diagnostic Physicians Name: Anthony Ruth MD Closure Device Recommendations: Medical Therapy and/or Counseling Cardiac Cath Procedure Full Procedure Date November 27, 2023 Pre-Procedure Diagnosis Pre-Procedure Diagnosis: Non STEMI and Cardiomyopathy AUC Score AUC Score: 7 Post-Procedure Diagnosis Post-Procedure Diagnosis: Mild CAD and Normal Intracardiac Pressures Procedure(s) Performed Procedure(s) Performed: Coronary Angiography and Left Heart Cath Dynamite Shooter Anthony Ruth MD Hospital Insurance Representative(s) [place] Estimated Blood Loss Estimated Blood Loss: 5 Medication(s) Medication(s): Fentanyl, Heparin, Lidocaine 1%, Nicardipine, Nitroglycerin and Versed Summary of Findings Indication: Cardiomyopathy, elevated troponin Access: 6 Fr right radial artery Catheters: [place] Findings: LM -medium caliber, no significant disease LAD -medium caliber, 20 to 30% proximal stenosis at takeoff of first septal, 30 to 40% mid stenosis just after takeoff of second diagonal. Remainder of vessel without significant disease extends to apex. Medium D2 without disease. Circumflex -medium caliber, no significant disease RCA -dominant, medium caliber, angiographically normal LVEDP -17 Arterial Closure: TR band Summary: 1. Mild nonobstructive coronary artery disease -25% proximal LAD, 30-40% mid LAD at takeoff of D2 2. Normal intracardiac filling pressure Recommendations: No obstructive CAD to explain cardiomyopathy. Suspect nonischemic cardiomyopathy likely stress-induced. Continue GDMT for NICM Continued ASCVD risk factor modification Hemodynamics Rest Ao:: 88/50/67 Final Ao: 88/46/64 LV: 91/17 Recommendations Recommendations: Medical Therapy and/or Counseling Radiation Exposure (mGy) 352 Contrast (mls) 35 Anesthesia Moderate [id number] Procedural Complication(s) None Disposition PCU I attest to the content of the Intraoperative Record and any orders documented therein. Any exceptions are noted below. [facility] Card Cath Procedure Codes Cardiac Catheterization Procedure 1: Cardiovascular Cath Procedures: 33019 Coronaries and LHC (+/-LV) Moderate Sedation Procedure 1: Sedation/Anesthesia: 75236 Mod Sedation by the same physician;Init15 Min Child Age 5 & Up PG Care Time/CCT Total # of Minutes Spent Total Time Spent with Patient: Total time spent is greater than 50% in coordination of care (as documented) at patient's floor/unit and/or counseling patient:
--- NOTE | 2023-11-27 11:01 | Cardiology Progress Note ---
Date of Service November 27, 2023 Assessment & Plan (1) NICM (nonischemic cardiomyopathy): Plan: 2. Mild nonobstructive CAD 3. Hypertension 4. Dyslipidemia 5. Gram-negative bacteremia 6. GEOVANI on CKD 7. Anemia No obstructive CAD on cardiac catheterization today. Suspect cardiomyopathy/troponin elevation stress-induced. No signs of heart failure on exam. LVEDP normal. Recommend initiation of GDMT for NICM as BP allows, trial low-dose carvedilol, losartan. Continue to hold outpatient diltiazem, hydrochlorothiazide. Potentially resume lower dose spironolactone as an outpatient Okay to continue aspirin. Resume prior home lipid therapy. From a cardiac standpoint okay with discharge today when TR band removed. Follow-up with cardiology in 2 weeks. Admission and Anticipated Discharge Date Admission Date: November 24, 2023 Subjective Feeling well this morning. Denies chest pain or shortness of breath. No abdominal pain, nausea. Telemetry reviewedno events Underwent cardiac catheterization this morning showing only mild nonobstructive CAD. Review of Systems Review of Systems: All systems reviewed & are unremarkable except as noted in HPI & below Physical Exam Physical Exam: General: Comfortable HEENT: Sclerae anicteric Lungs: Clear to auscultation bilaterally, no crackles or wheezes Cardiac: Regular rate and rhythm, no murmurs. Vascular: TR band in place Abdomen: Soft, nontender Extremities: Well perfused, no peripheral edema Neuro: Nonfocal Psych: Alert orient x3, normal affect and mood Results & Data Vital Signs (Past 12 Hours) Vital Signs Temp Pulse Pulse Resp BP Pulse Ox O2 Del Method 11/27/23 09:28 98.2 F 78 18 109/87 98 Room Air 11/27/23 07:45 98.2 F 72 16 95/65 L 97 Room Air 11/27/23 06:00 73 11/27/23 03:18 99.5 F 77 16 96/56 L 96 Room Air 11/27/23 00:02 98.6 F 76 16 112/61 98 Room Air 11/26/23 23:12 75 PG Care Time/CCT Total # of Minutes Spent Total Time Spent with Patient: Total time spent is greater than 50% in coordination of care (as documented) at patient's floor/unit and/or counseling patient: Coding Level of Care Code 88351 SUB INP/OBS CARE 3/50MIN Diagnoses NICM (nonischemic cardiomyopathy) I42.8
[2023-11-27] MEDS: LOSARTAN POTASSIUM 25 MG TAB PO SCH (13:20)
--- NOTE | 2023-11-27 17:47 | Billing Data ---
Date of Service November 27, 2023 Coding Level of Care Code 74074 SUB INP/OBS CARE MIN
[2023-11-27] MEDS: fentaNYL citrate PF 100 MCG/2 ML VIAL ONE (20:37)
[2023-11-27] MEDS: HEPARIN (PORCINE) 1000 UNIT/ML 10 ML (CATH LAB USE ONLY) ONE (20:37)
[2023-11-27] MEDS: niCARdipine HCL INJ 2.5 MG/ML 10 ML AMP ONE (20:38)
[2023-11-27] MEDS: MIDAZOLAM HCL 1 MG/ML 2ML VIAL ONE (20:38)
[2023-11-27] MEDS: NITROGLYCERIN/D5W 100MCG/ML 20ML SYR ONE (20:39)
[2023-11-27] MEDS: OPTIRAY 350 ONE (20:39)
[2023-11-27] MEDS: ENOXAPARIN INJ 40 MG/0.4 ML SYR SQ SCH (20:42)
[2023-11-28 06:40] LABS: Hematocrit (blood only) 26.1 % (37.0-47.0); Hemoglobin 8.8 g/dl (12.0-16.0); Mean Corpuscular Hemoglobin 29.6 pg (25.0-34.0); Mean Corpuscular Hgb Conc 33.7 g/dL (32.0-36.0); Mean Corpuscular Volume 87.9 fL (80.0-100.0); Mean Platelet Volume 9.6 fL (9.4-12.4); Nucleated RBC # (auto) 0.02 K/uL (0.00-0.12); Nucleated RBC % (auto) 0.3 %; Platelet Count 298 K/uL (130-400); RDW Coefficient of Variation 11.9 % (11.5-14.5); RDW Standard Deviation 38.6 fL (36.4-46.3); Red Blood Count 2.97 M/uL (4.20-5.40); White Blood Count 7.96 K/ul (4.8-10.8)
--- NOTE | 2023-11-28 15:51 | Discharge Summary ---
Date of Service November 28, 2023 Admission HPI Per Admitting Provider 73-year-old female presents with nausea vomiting and diarrhea. She feels it was secondary to chicken that was poorly cooked at a local restaurant. However upon evaluation it looks to be that she has sepsis from urinary source with cystitis seen on CT scan. She is a previous history of pansensitive E. coli. Additionally she has low blood pressure despite volume resuscitation, elevated lactic acid, elevated troponin to 7000 with what looks like Takotsubo's cardiomyopathy on echocardiogram. She also has sodium of 127 acute kidney injury with history of chronic kidney disease with a BUN and creatinine of 34 and 1.7. She has a BNP of 1866 and a Pro-Keagan of 23. In the emergency department she was initially placed on heparin drip for fear of NSTEMI, she was given ceftriaxone after blood cultures were obtained. A urine culture is currently pending. Stool bio fire and C. difficile are currently pending. Patient received additional 500 cc of saline in the emergency department should be placed on saline drip reluctantly given her hyponatremia. Serum and urine osmolalities as well as urine sodium are pending. Call to nephrology who she typically follows for chronic kidney disease and cardiology is consulted given her troponin is 7000 Propacet preliminary looking like Takotsubo's. She remains on heparin drip was given aspirin She is currently awake and conversant she feels chilled and having some shivers but not rigors. Admission Exam Per Admitting Provider The patient appeared well nourished and normally developed. She is conversant having shaking chills Vital signs as documented. Head exam is normocephalic atraumatic Neck is without JVD, thyromegaly, or carotid bruits. Lungs are clear to auscultation, no focal loss of breath sounds Cardiac exam, Rhythm is regular.. No murmurs, rubs or gallops. Abdominal exam reveals normal bowel sounds, soft non tender, no masses be some mild left CVA tenderness. Extremities are nonedematous and both pedal pulses are present Neurologic exam is alert and oriented, no focal loss of strength or sensation Skin is without bruises or rashes Psychologically is without concerns for anxiety or depression.. Principal Diagnosis e. coli bacteremia, non-ischemic cardiomyopathy Discharge Exam General: Alert and oriented. No acute distress Cardiac: Regular rate and rhythm, no murmurs appreciated. No JVD appreciated. Respiratory: Lung clear to auscultation bilaterally, No increased work of breathing Abdominal: Soft, non-tender, non-distended. Bowel sounds present. Extremities: warm, well perfused Psych: AOx3, mood affect congruence Discharge Data Allergies Allergy/AdvReac Type Severity Reaction Status Date / Time lisinopril AdvReac Severe cough Verified 07/04/23 13:30 amlodipine AdvReac Unknown ankle Verified 07/04/23 13:30 swelling metoprolol AdvReac Unknown bradycardia, Verified 07/04/23 13:30 chest pain Mfwbbyy-IRT-BaY Reductase AdvReac Unknown muscle & Verified 07/04/23 13:30 Inhibitor joint pain [Mbardrv-Lzh-Yay Reductase Inhibitor] Consultations 11/24/23 09:01 ED Decision to Admit Stat 11/25/23 10:58 Consult Cardiology Routine Procedures Performed Operation Date: 11/27/23 09:30 Actual Procedures p Cineradiography w/Routine Exam - Anthony Ruth MD s Cath, Left with Cors and Vent - Anthony Ruth MD Ordered Studies 11/24/23 07:49 CT abd pelvis wo con Stat 11/27/23 06:35 CL Cath Imgs for PACS use only Routine Hospital Course (1) Sepsis: (2) Chronic kidney disease, stage III (moderate): (3) Elevated troponin: Plan 73 year old female presented with N/V/D: #Sepsis, Gram-negative bacteremia: - Presumed urinary source, positive UA, CTAP consistent with cystitis with ascending infection - Blood cx + pansensitive e. coli - Urine cx with 3 organisms, all high counts - Treated with Ceftriaxone x5 days, discharged on Cefdinir with recommendation to finish out total of 7 days abx #Elevated Troponin: - Troponin peaked at 7700, subsequent trops trended downward - BNP 1866 on admission - TTE 11/23 with EF 25-30%, apical akinesis, mild LV outflow obstruction - Repeat TTE 11/25 relatively unchanged - Cardiology consulted: - s/p cardiac cath - significant for nonischemic cardiomyopathy, most likely stress-induced - Continue Losartan 25mg daily for afterload reduction - BP consistently soft since admission, continue to hold home HCTZ, Diltiazem, Spironolactone indefinitely - consider reinitiating in the outpatient setting if average BP increases with cardiac recovery - h/o statin intolerance, continue fenofibrate - outpatient cardiology follow up in 2 weeks. #GEOVANI in patient with CKD - Resolved: #HTN: - As above. Hold home antihypertensives. Total Time Total Time Spent Total Time Spent (In Minutes): <30 Discharge Plan Discharge Items Patient Disposition: Home - Self-Care Reason For Visit: sepsis, urinary source, suspect taksusbos Discharge Diagnosis: nonischemic cardiomyopathy, e.coli bacteremia Activity: As commented below Activity Comment: Gradual progression of activity as tolerated Non-emergency contact: Primary Care Provider Call non-emergency contact if: you have any medication questions and your symptoms worsen Follow-up/Referrals: Ronaldo Valles MD [Physician] - 12/26/23 1:30 pm (Scheduled with Dr. Casillas on 12/26/23 at 1:30 pm at [facility] [address] [place] [address] [address]) Gilbert Alejo [Primary Care Provider] - 12/05/23 10:45 am (Scheduled with Dr. Hawk on December 05, 2023 at 10:45 am.) Diet: Heart Healthy Addtl Attending Provider Instructions: You were admitted to the hospital for treatment of a bloodstream infection. Upon discharge, you will need to take antibiotics (Cefdinir) for 2.5 more days - Please take one tab twice daily, first dose tonight. You were also diagnosed with non-ischemic cardiomyopathy. This is different from a heart attack, the catheterization procedure demonstrated that you DID NOT have a heart attack. It is likely the stress of the infection put strain on your heart. In most cases, heart function is able to bounce back over time. In the meanwhile, because your blood pressure has been consistently on the lower side, we recommend that you at least temporarily discontinue your hypertension medications (Hydrochlorothiazide, spironolactone, Diltiazem). Please continue to monitor your blood pressure at home, if your blood pressure becomes high again, your primary care provider may recommend restarting some or all of these medications. Cardiology would also like you to follow up in their office in 2 weeks. You were also started on losartan for cardiac benefit. Lastly, please follow up with your PCP re: new home BP cuff. A discharge summary will be sent to your primary care physician to ensure continuity of care. Please bring this discharge summary with you to your next office appointment so that your provider can review it at that time. Medications: Your medication list has been reviewed and reconciled upon discharge to ensure accuracy and continuity of care. An updated list of all your medications is included with your hospital discharge paperwork. Please review this list closely and make note of any changes to your medications. New Medications: Losartan: Please take 1, 25mg tab once daily Cefdinir: Please take 1 tab twice daily, first dose tonight. Discontinued Medications: Please STOP taking hydrochlorothiazide, spironolactone, Diltiazem, your primary care provider can help determine if/when these medications can be restarted Follow up appointments: - Make a follow up appointment with your PCP within the next week. It is very important that you follow up with them shortly after discharge from the hospital. - Keep all of your follow up appointments as already scheduled. If you cannot make an appointment, notify your provider. CONTACT YOUR PRIMARY CARE PROVIDER if you experience any of the following: - Difficulty following your treatment plan - Difficulty taking any of your medications CALL 911 OR GO TO THE EMERGENCY DEPARTMENT if you experience any of the following: - Sudden, severe abdominal pain or nausea/vomiting - Severe chest pain or chest pain that radiates to your jaw or arm - Sudden, severe shortness of breath or difficulty breathing Pending Studies at Discharge: No Stand-Alone Forms: My [facility], Smoking Cessation Medications and DC Order Prescriptions: New losartan 25 mg Tablet 25 mg PO QAM 30 Days Qty: 30 0RF cefdinir 300 mg capsule 300 mg PO BID 2 Days Qty: 5 0RF Continued Prolia 60 mg/mL syringe 60 mg subcut .[id number] Qty: 1 1RF Patient Comments: due next sep 2023/had march 2023 omega 1-tsr-fsr-fish oil [Fish Oil] 1,200 (144-216) mg capsule 0 cap PO QAM Rx Instructions: Unable to verify OTC medications with patient/family/pharmacy at this date/time. fenofibrate nanocrystallized 48 mg tablet 48 mg PO QAM cholecalciferol (vitamin D3) 25 mcg (1,000 unit) capsule 0 mcg PO QPM Rx Instructions: Unable to verify OTC medications with patient/family/pharmacy at this date/time. betamethasone, augmented 0.05 % cream 1 applic TOPICAL BID meclizine 12.5 mg tablet 0 mg PO TID PRN (Reason: dizziness) Patient Comments: very rare Rx Instructions: Unable to verify OTC medications with patient/family/pharmacy at this date/time. Held spironolactone 50 mg tablet 50 mg PO BID Hold Instructions: Resume on 01/17/24. Please hold until you discuss with your primary care provider. Patient Comments: breakfast and lunch time diltiazem HCl [Cardizem CD] 120 mg capsule,extended release 24hr 120 mg PO QAM Qty: 30 5RF Hold Instructions: Resume on 01/17/24. Please hold until you discuss with your primary care provider. hydrochlorothiazide 12.5 mg tablet 12.5 mg PO QAM Hold Instructions: Resume on 01/17/24. Please hold until you discuss with your primary care provider. Discharge Orders: Discharge Order (Routine); Ordered 11/28/23 Ordered By: Darrius Mcneill Admission Data Admit Date/Time: 11/24/23 09:57 Attending Provider: Yordy Cosby Admit Provider: Desmond Maher Primary Care Provider: Gilbert Alejo Other Providers: Estevan Russell; Ronaldo Valles Other Interventions: Discharge Summary Assessment (RN) Last Done: 11/28/23 11:44 Supervising Physician Co-Signing Physician Notes I personally examined the patient and verified all lewis points of history and exam, discussed case, and agree with decision making with Dr Mcneill Feels good. Walking. No dizziness, no orthostasis. It is notable that her home blood pressure cuff was consistently inconsistent with our cuff. She is willing to get a new one. Feels up to going home. Vitals noted, in general she is awake and alert pleasant no distress. HEENT normocephalic atraumatic mucous membranes moist. Breathing unlabored no accessory muscle use good effort. Skin shows no rashes no pallor or icterus. Neuro without focal deficits. Sepsis E coli bacteremia - likely urinary source though urine culture with more than 3 organisms. - Treated with IV Rocephin for 4 days, given how rapidly she improved, short course of treatment appears appropriate. Finish out treatment with an oral third GEN cephalosporin, despite lower oral bioavailability than something like a sammie quinolone, the shift on spectrum and mechanism would be riskier for C. difficile, and the connective tissue risk seems needless given how quickly and definitively she is showing improvement. Acute cardiomyopathy with EF 25-30%, apical akinesis, LVOT obstruction, mild concentric LVH - Possibly Takotsubo - Cath without significant obstructive coronary disease. With her blood pressure as low as it is, heart rate being modestly low normal, I doubt she will be out of tolerated beta-anne. Afterload reduction with ARB. Tolerating well. Outpatient ambulatory blood pressure monitoring, basic metabolic panel within a few days to a week after discharge. Acute systolic heart failure - s/p one dose 20mgs lasix with improvement. N/V sec to gastroenteritis d/t food - resolved. PPI helping with heartburn. DVT proph - lovenox Coronary diseasenonobstructive, but is present. Aspirin for risk reduction Resident Activity Tracking Resident Involvement: Resident Care Provided Care Provided: Adult Hospital Medicine
--- NOTE | 2023-11-28 16:29 | Billing Data ---
Date of Service November 28, 2023 Coding Level of Care Code 73693 IN/OBS DISCH 30 MIN/LESS
--- NOTE | 2023-11-28 21:27 | Cardiology Progress Note ---
Date of Service November 28, 2023 Assessment & Plan (1) NICM (nonischemic cardiomyopathy): Plan: 2. Mild nonobstructive CAD 3. Hypertension 4. Dyslipidemia 5. Gram-negative bacteremia 6. GEOVANI on CKD 7. Anemia Remains chest pain-free. Electrically stable. Blood pressure borderline No signs of heart failure on exam. From a cardiac standpoint okay with discharge today. Home on current losartan 25 mg daily With borderline blood pressures we will hold off on trial of beta-anne. Consider carvedilol as an outpatient. Hold home diltiazem, hydrochlorothiazide, spironolactone continue aspirin. Resume prior home lipid therapy. Will arrange follow-up with cardiology in 2 weeks. Admission and Anticipated Discharge Date Admission Date: November 24, 2023 Subjective Feeling well today. Denies any chest pain. No shortness of breath. Appetite improving. Review of Systems Review of Systems: All systems reviewed & are unremarkable except as noted in HPI & below Physical Exam Physical Exam: General: Comfortable HEENT: Sclerae anicteric Lungs: Clear to auscultation bilaterally, no crackles or wheezes Cardiac: Regular rate and rhythm, no murmurs. Vascular: Right radial artery access site with no ecchymosis, hematoma. Distal pulse and sensation intact. Abdomen: Soft, nontender Extremities: Well perfused, no peripheral edema Neuro: Nonfocal Psych: Alert orient x3, normal affect and mood Results & Data Vital Signs (Past 12 Hours) Vital Signs Temp Pulse Resp BP Pulse Ox O2 Del Method 11/28/23 11:44 97.7 F 73 18 110/61 98 11/28/23 10:57 97.7 F 73 18 110/61 98 Room Air PG Care Time/CCT Total # of Minutes Spent Total Time Spent with Patient: Total time spent is greater than 50% in coordination of care (as documented) at patient's floor/unit and/or counseling patient: Coding Level of Care Code 15568 SUB INP/OBS CARE 2/35MIN Diagnoses NICM (nonischemic cardiomyopathy) I42.8
== END 2023-11-28 15:32 | disposition home or self-care (01) | DRG 871 ==
LOC: ED 06:25 → SUATTDRO 09:57 → 2E 09:57